=== PATIENT | female | born 1940 | race Caucasian/White ===

== ENCOUNTER 2019-10-06 10:16 | Outpatient (CLI) | payer MEDICARE, SELFPAY ==
--- NOTE | ~2019-10-06 | MM_ITS ---
EXAMINATION: MM screening tresa BI w corky HISTORY: Screening mammogram, family history of breast cancer in her sister. TECHNIQUE: Craniocaudal and mediolateral oblique 3-D tomosynthesis images were obtained and synthetic 2-D images were generated. CAD analysis was submitted and interpreted. COMPARISON: 08/28/2018, 08/21/2017, 08/16/2016 BREAST PARENCHYMAL COMPOSITION: There are scattered areas of fibroglandular density. FINDINGS: RIGHT BREAST: There is possible architectural distortion in the middle/posterior third of the breast best appreciated in line with the nipple axis 7 cm deep to the nipple on the craniocaudal view. LEFT BREAST: A mass is present in the posterior third of the slightly outer breast 9.5 cm from the ni pple. IMPRESSION: 1. Bilateral breast findings as described above. 2. Additional mammographic views and possible breast ultrasound are recommended. BI-RADS Category 0: Incomplete: Needs additional imaging evaluation. Reviewed, dictated and finalized at location A. IMPRESSION: 1. Bilateral breast findings as described above. 2. Additional mammographic views and possible breast ultrasound are recommended . BI-RADS Category 0: Incomplete: Needs additional imaging evaluation.
== END 2019-10-06 10:17 | disposition home or self-care (01) ==
PROVIDERS: PCP Internal Medicine; Visit Provider Internal Medicine
DX: Z12.31 Encounter for screening mammogram for malignant neoplasm of breast (principal); R92.8 Other abnormal and inconclusive findings on diagnostic imaging of breast
CPT/HCPCS: 77063; 77067

== ENCOUNTER 2019-10-27 13:16 | Outpatient (CLI) | payer MEDICARE, SELFPAY ==
--- NOTE | ~2019-10-27 | MMUS_ITS ---
EXAMINATION: MM diagnostic mammo BI, US breast LT limited, US breast RT complete HISTORY: Possible architectural distortion in middle/posterior third of the right breast in line with the nipple axis VII cm deep to the nipple on 10/06/2019 craniocaudal view Left breast mass in posterior third of slightly outer breast 9.5 cm from nipple TECHNIQUE: Additional 3-D tomosynthesis images of both breasts were performed and synthetic 2-D image s were generated. CAD analysis was submitted and interpreted. High resolution complete right and targ eted left 3:00 breast ultrasound was performed. COMPARISON: 10/06/2019 bilateral digital screening mammogram FINDINGS: MAMMOGRAPHIC FINDINGS: Subtle architectural distortion suggested in the posterior central right breast on screening CC view of 10/06/2019 is not definitively confirmed on these supplemental views. As a precaution, complete rig ht breast ultrasound examination was performed. Approximately 4 x 6.5 mm circumscribed opacity is noted posteriorly in the outer mid left breast. Son ographic correlation was performed. ULTRASOUND: Right breast: Prominent subareolar ducts are noted. No suspicious mass or shadowing is evident. Left breast: At 3:00 7 cm from nipple corresponding to the mammographic finding is a parallel circums cribed hypoechoic 2.9 x 5.5 mm lesion with no suspicious shadowing, with through transmission, likely a cyst. No suspicious mass or shadowing is evident. IMPRESSION: 1. No mammographic evidence of malignancy 2. Routine mammographic screening is recommended. BI-RADS Category 2: Benign finding(s). Reviewed, dictated and finalized at location A. IMPRESSION: 1. No mammographic evidence of malignancy 2. Routine mammographic screening is recommended. BI-RADS Category 2: Benign finding(s). IMPRESSION: 1. No mammographic evidence of malignancy 2. Routine mammographic screening is recommended. BI-RADS Category 2: Benign finding(s).
== END 2019-10-27 13:17 | disposition home or self-care (01) ==
LOC: ANHIMG 13:17
PROVIDERS: PCP Internal Medicine; Visit Provider Internal Medicine
DX: R92.8 Other abnormal and inconclusive findings on diagnostic imaging of breast (principal)
CPT/HCPCS: 76641; 76642; 77066

== ENCOUNTER 2019-12-16 00:52 | Outpatient (CLI) | payer MEDICARE, SELFPAY ==
[2019-12-16 20:51] LABS: SARS-CoV-2 RNA PCR Negative
== END 2019-12-16 00:53 | disposition home or self-care (01) ==
LOC: ANHCOVIDDT 00:52
PROVIDERS: PCP Internal Medicine; Visit Provider Internal Medicine Gastroenterology
DX: Z01.812 Encounter for preprocedural laboratory examination (principal); Z20.828 Contact with and (suspected) exposure to other viral communicable diseases
CPT/HCPCS: 87635; C9803; U0003

== ENCOUNTER 2019-12-18 01:20 | Day surgery (SDC) | payer MEDICARE, SELFPAY ==
[2019-12-11 13:00] VITALS: BMI 27.5
--- NOTE | 2019-12-17 12:33 | WPDANESEPPF ---
Anes - Initial Pre Proc Eval Procedure: Operation Date: 12/18/19 08:30 Proposed Procedures p Colonoscopy - Dmitry Hung DO Date/Time: 12/17/19 12:33 Surgeon: Dmitry Hung DO Pre Op Diagnosis: Irritable Bowel Syndrome with Constipation and Romelia Patient Data Age: 79 Gender: F Height: 1.65 m Weight: 75 kg Allergies Allergy/AdvReac Type Severity Reaction Status Date / Time No Known Allergies Allergy Verified 12/18/19 07:39 Home Medications Medication Instructions Recorded Confirmed Type aspirin 81 mg tablet,delayed 81 mg PO DAILY 02/25/19 12/18/19 History release ergocalciferol (vitamin D2) 1,250 50,000 unit PO WEEKLY 02/25/19 12/18/19 History mcg (50,000 unit) capsule loratadine-pseudoephedrine ER 10 1 tablet PO DAILY 02/25/19 12/18/19 History mg-240 mg tablet,extended [id number] multivit with 1 tablet PO DAILY 02/26/19 12/18/19 History ybusppgx-fotg-RQ-lutein 8 mg iron-400 mcg-300 mcg tablet triamcinolone acetonide 0.1 % 1 applic TOPICAL .qother #30 gm 05/30/19 12/18/19 Rx topical ointment gemfibrozil 600 mg tablet 600 mg PO BID #180 tablet 09/07/19 12/18/19 Rx losartan 50 mg tablet 50 mg PO DAILY #90 tablet 09/07/19 12/18/19 Rx lactobacillus combination no.8 1 cell PO DAILY 12/11/19 12/18/19 History [Adult Probiotic] omeprazole 40 mg PO DAILY 12/11/19 12/18/19 History polyethylene glycol 3350 [Miralax] 17 g PO DAILY PRN 12/11/19 12/18/19 History Patient hx anesthesia problems: none Family hx anesthesia problems: none PMFSH Past Medical History Medical History (Updated 12/17/19 @ 12:34 by Michael Luke MD) Essential (primary) hypertension Overweight (BMI 25.0-29.9) Pure hypercholesterolemia Family History Family History Sibling Patient's brother is in good health Family history of malignant neoplasm of breast in first degree relative Acute myocardial infarction Family history of diabetes mellitus in first degree relative Family history of heart disease in male family member before age 55 Father Cerebrovascular accident, Onset Age: 89 Family history of Parkinson's disease Family history of diabetes mellitus in first degree relative Mother Patient's mother is Family history of congestive heart failure Other Diabetes mellitus Family history of allergic disorder Family history of cardiovascular disease Hypertension Social History Social History Smoking status: Never smoker Second hand tobacco smoke exposure: No Alcohol intake: current Drinks per week: 4 Substance use: never Living arrangements: with family Gender identity (if verbalized by the patient): Female Spiritual care concerns: No Anes - Eval Final PreProcedure Day of Procedure 12/17/19 12:33 Patient weight: overweight Heart: regular rate and rhythm Lungs: clear to auscultation and normal air movement Airway: Mallampati scale class II Neurological: alert and oriented Last oral intake: >/= 8 hours ASA classification: II Emergent: no Anesthetic plan: proceed Anesthesia type and monitoring: general GIVS Informed Consent: The patient's anesthetic plan and its attendant risks and benefits were discussed with the patient/family/POA. Questions were solicited and answers provided to the satisfaction of the patient/family/POA.
[2019-12-18 07:42] VITALS: BP 155/89; PULSE 82; RESP 16; TEMP 36.1; O2SAT 99; BMI 27.1
--- NOTE | 2019-12-18 07:51 | PM.IMHP ---
H&P: HPI History of Present Illness Date/Time: 12/18/19 07:51 Chief complaint: Irritable Bowel Syndrome with Constipation and Romelia Narrative: reason for visit is colonoscopy. This very pleasant lady's being evaluated at the request of the primary physician. The patient was examined. Impression: Here very pleasant lady that is here for screening and surveillance colonoscopy. She did have an episode of recent diarrhea. Underlying inflammatory neoplastic disease should be excluded. She does tend to have alternating constipation and diarrhea which is very compatible with IBS. GERD well controlled medications. Per past medical history. Recommendation: Colonoscopy. History: This very pleasant lady's here for screening and surveillance colonoscopy. She has history adenomatous colon polyps. She did have some diarrhea for about 5 days for a couple months ago. He hematochezia, melena colic stools are denied. She tends to have alternating constipation diarrhea. She has a history of reflux disease well controlled on medications. Physical examination: General: very pleasant patient in no acute distress. HEENT: Head was normocephalic sclerae is clear mouth without masses neck was supple. Heart: Rate rhythm regular without S3 or S4. Lungs: CTA. Abdomen: Soft with no guarding or rigidity. Bowel sounds were active. Neurologic: Cranial nerves 2 through 12 intact. No focal defects. No clonus. Musculoskeletal system: Revealed no joint tenderness or swelling no muscle atrophy. Extremities: Reveal no significant edema. Skin: Warm and dry with normal turgor. Mental status: intact. Patient is alert and oriented. Review of Systems Review of Systems: All systems reviewed & are unremarkable except as noted in HPI and below PMFSH Past Medical History Medical History (Updated 12/18/19 @ 07:51 by Dmitry Hung DO) Adenomatous colon polyp Essential (primary) hypertension Overweight (BMI 25.0-29.9) Pure hypercholesterolemia Family History Family History Sibling Patient's brother is in good health Family history of malignant neoplasm of breast in first degree relative Acute myocardial infarction Family history of diabetes mellitus in first degree relative Family history of heart disease in male family member before age 55 Father Cerebrovascular accident, Onset Age: 89 Family history of Parkinson's disease Family history of diabetes mellitus in first degree relative Mother Patient's mother is Family history of congestive heart failure Other Diabetes mellitus Family history of allergic disorder Family history of cardiovascular disease Hypertension Social History Social History Smoking status: Never smoker Second hand tobacco smoke exposure: No Alcohol intake: current Drinks per week: 4 Substance use: never Living arrangements: with family Gender identity (if verbalized by the patient): Female Spiritual care concerns: No Meds Home Medications and Allergies Home Medications Medication Instructions Recorded Confirmed Type aspirin 81 mg tablet,delayed 81 mg PO DAILY 02/25/19 12/18/19 History release ergocalciferol (vitamin D2) 1,250 50,000 unit PO WEEKLY 02/25/19 12/18/19 History mcg (50,000 unit) capsule loratadine-pseudoephedrine ER 10 1 tablet PO DAILY 02/25/19 12/18/19 History mg-240 mg tablet,extended [id number] multivit with 1 tablet PO DAILY 02/26/19 12/18/19 History nadedqqj-rxsm-UQ-lutein 8 mg iron-400 mcg-300 mcg tablet triamcinolone acetonide 0.1 % 1 applic TOPICAL .qother #30 gm 05/30/19 12/18/19 Rx topical ointment gemfibrozil 600 mg tablet 600 mg PO BID #180 tablet 09/07/19 12/18/19 Rx losartan 50 mg tablet 50 mg PO DAILY #90 tablet 09/07/19 12/18/19 Rx lactobacillus combination no.8 1 cell PO IRISH
[2019-12-18] MEDS: LACTATED RINGERS 1,000 ML 150 ML IV CONT (07:56)
[2019-12-18 08:51] VITALS: BP 113/70; PULSE 74; RESP 15; O2SAT 94
[2019-12-18 09:01] VITALS: BP 131/83; PULSE 79; RESP 19; O2SAT 99
[2019-12-18 09:11] VITALS: BP 128/97; PULSE 72; RESP 19; O2SAT 97
== END 2019-12-18 09:41 | disposition home or self-care (01) ==
PROVIDERS: PCP Internal Medicine; Visit Provider Internal Medicine Gastroenterology
PROC: 0DJD8ZZ Inspection of Lower Intestinal Tract, Via Natural or Artificial Opening Endoscopic (ICD-10-PCS; CPT 45378; principal; 2019-12-18 08:30)
DX: R19.7 Diarrhea, unspecified (principal); K59.00 Constipation, unspecified; D12.2 Benign neoplasm of ascending colon; K57.30 Diverticulosis of large intestine without perforation or abscess without bleeding; K64.8 Other hemorrhoids; I10 Essential (primary) hypertension; E78.00 Pure hypercholesterolemia, unspecified; Z79.82 Long term (current) use of aspirin
CPT/HCPCS: 45380; 88305; J2704; J7120

== ENCOUNTER 2020-03-25 20:15 | Observation (INO) | payer MEDICARE, SELFPAY ==
--- NOTE | ~2020-03-25 | XR_ITS ---
EXAMINATION: XR elbow LT min 3V DATE: 03/25/2020 23:59 INDICATION: Left elbow pain TECHNIQUE: Anteroposterior, two oblique and lateral views of the left elbow were obtained. COMPARISON: None. FINDINGS: Minimally impacted intra-articular fracture of the left radial head which involves approximately one quarter of the total surface of the articular surface and with up to 1 mm step-off at the articular c ortex. Alignment remains otherwise normal. No other fractures identified. Mild osteoarthritis at the ulnotrochlear and proximal radioulnar articulations. Small left elbow joint effusion is present. Soft tissues are otherwise unremarkable. IMPRESSION: 1. Minimally depressed intra-articular fracture of the left radial head. Reviewed, dictated and finalized at location A. UMER BANKER
--- NOTE | ~2020-03-25 | XR_ITS ---
EXAMINATION: XR pelvis 1-2V DATE: 03/25/2020 23:58 INDICATION: Left hip pain post fall TECHNIQUE: An anteroposterior view of the pelvis was obtained. COMPARISON: 01/19/2016 FINDINGS: Alignment is normal. No fracture. Mild bilateral hip osteoarthritis with minimal chondrocalcinosis al francisco the left femoral head. Small amount of heterotopic ossification at the bilateral greater trochant ers. Severe lumbar spondylosis. Coarse calcification project over the central pelvis consistent with degenerated uterine fibroids. IMPRESSION: 1. Mild bilateral hip osteoarthritis. No acute osseous abnormality. 2. Severe lower lumbar spondylosis. 3. Ossified degenerated uterine fibroids. Reviewed, dictated and finalized at location A. ADMINISTRATOR
--- NOTE | ~2020-03-25 | XR_ITS ---
EXAMINATION: XR femur LT min 2V DATE: 03/25/2020 23:09 INDICATION: Posterior proximal left femoral pain post fall TECHNIQUE: Overlapping proximal and distal, AP and lateral views of the left femur were obtained. COMPARISON: CT abdomen and pelvis dated 05/27/2018 FINDINGS: Alignment is normal. No fracture. No knee joint effusion. Joint spaces appear relatively preserved. Chondrocalcinosis at the left hip and knee. Mild left hip osteoarthritis. Left knee joint space appe ars relatively preserved on nonweightbearing imaging. Small amount of heterotopic ossicles along the left greater trochanter. Coarse calcifications in the central pelvis corresponding to a degenerated u terine fibroids on prior CT. Soft tissues are unremarkable. IMPRESSION: 1. No acute osseous abnormality. 2. Mild chondrocalcinosis at the left hip and knee with mild left hip osteoarthritis. 3. Calcified degenerated uterine fibroids in the pelvis. Reviewed, dictated and finalized at location A. ING ROOM ASSOCIATE IMPRESSION: 1. No acute osseous abnormality. 2. Mild chondrocalcinosis at the left hip and knee with mild left hip osteoarth ritis. 3. Calcified degenerated uterine fibroids in the pelvis.
--- NOTE | ~2020-03-25 | XR_ITS ---
EXAMINATION: XR ribs LT 2V DATE: 03/25/2020 23:10 INDICATION: Generalized left rib pain post fall TECHNIQUE: 3 views of the left ribs were obtained. COMPARISON: Chest radiograph dated 01/26/2010 FINDINGS: Acute non to minimally displaced fracture of the lateral left third-eighth ribs. Mild linear atelecta sis at the lateral left lower lung zone likely related to splinting. No pneumothorax or left pleural effusion. 30 mediastinal silhouette is normal. Cholecystectomy clips in the right upper quadrant. IMPRESSION: 1. Centimeter minimally displaced left third-eighth rib fractures. 2. Mild atelectasis in the left lower lung zone likely related to splinting with no pleural effusion or pneumothorax. Reviewed, dictated and finalized at location A. ING FLOOR OPERATOR IMPRESSION: 1. Centimeter minimally displaced left third-eighth rib fractures. 2. Mild atelectasis in the left lower lung zone likely related to splinting wit h no pleural effusion or pneumothorax.
--- NOTE | ~2020-03-25 | XR_ITS ---
EXAMINATION: XR humerus LT DATE: 03/25/2020 23:09 INDICATION: Distal left humeral pain post fall TECHNIQUE: AP and lateral views of the left humerus were obtained. COMPARISON: None FINDINGS: Alignment is normal. There are few left rib fractures. See separate left rib radiograph report for fu rther detail. No evident fracture at the left shoulder or humerus. There is an irregular contour to t he rim of the head of the proximal left radius which is equivocal for fracture versus degenerative os teophyte. No evident elbow joint effusion. Additional osteoarthritis with nonuniform joint space narr owing at the ulnotrochlear articulation and at the glenohumeral joint with marginal osteophyte along the posterior glenoid. Moderate left acromioclavicular osteoarthritis. Amorphous calcification overly ing the humeral head and location most consistent with rotator cuff calcific tendinitis. No evident p neumothorax in the left hemithorax. IMPRESSION: 1. Irregular cortical contour along the articular rim of the left radial head. Clinical for degenerat marialuisa osteophyte versus minimally displaced fracture. Recommend dedicated left elbow radiographs for fu rther evaluation. 2. Multiple left-sided rib fractures. See separate left rib radiographs for further detail. 3. 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 4. Left rotator cuff calcific tendinitis. Reviewed, dictated and finalized at location A. EDICAL EQUIPMENT TECH IMPRESSION: 1. Irregular cortical contour along the articular rim of the left radial head. Clinical for degenerative osteophyte versus minimally displaced fracture. Recom mend dedicated left elbow radiographs for further evaluation. 2. Multiple left-sided rib fractures. See separate left rib radiographs for fur ther detail. 3. 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 4. Left rotator cuff calcific tendinitis.
[2020-03-25 20:31] VITALS: BP 141/67; PULSE 87; RESP 12; TEMP 36.3; O2SAT 96
[2020-03-25 22:40] VITALS: BP 123/67; PULSE 94; TEMP 37.2; O2SAT 99
--- NOTE | 2020-03-25 23:29 | ED.FALL ---
HPI - Fall General Chief Complaint: Fall Stated Complaint: Fall - LEFT hip, LEFT arm pain Time Seen by Provider: 03/25/20 23:29 History of Present Illness HPI Narrative: 79 yo female brought in by EMS from home after a fall. She was walkig at home when she tripped over the edge of the carpet and fell onto her left side. She reports moderate to severe pain in the left side of the chest, left elbow and left hip. She did not hit her head. No dizziness, weakness, LOC. Related Data Home Medications Medication Instructions Recorded Confirmed aspirin 81 mg tablet,delayed 81 mg PO DAILY 02/25/19 03/22/20 release ergocalciferol (vitamin D2) 1,250 50,000 unit PO WEEKLY 02/25/19 03/22/20 mcg (50,000 unit) capsule loratadine-pseudoephedrine ER 10 1 tablet PO DAILY 02/25/19 03/22/20 mg-240 mg tablet,extended [id number] multivit with 1 tablet PO DAILY 02/26/19 03/22/20 xshboqem-lxba-FA-lutein 8 mg iron-400 mcg-300 mcg tablet lactobacillus combination no.8 1 cell PO DAILY 12/11/19 03/22/20 [Adult Probiotic] omeprazole 40 mg PO DAILY 12/11/19 03/22/20 polyethylene glycol 3350 [Miralax] 17 g PO DAILY PRN 12/11/19 03/22/20 Allergies Allergy/AdvReac Type Severity Reaction Status Date / Time No Known Allergies Allergy Verified 03/25/20 23:51 Review of Systems Review of Systems: All systems reviewed & are unremarkable except as noted in HPI and below Constitutional: Constitutional: Denies fever(s) and Denies weakness Eyes: Eyes: Reports no additional eye complaints ENT: Denies dizziness Cardiovascular: Cardiovascular: Denies chest pain Respiratory: Respiratory: Denies dyspnea Gastrointestinal: Gastrointestinal: Reports no additional gastrointestinal complaints Genitourinary: Genitourinary: Reports no additional female genitourinary complaints Musculoskeletal: Musculoskeletal: Denies back pain Neurologic: Denies numbness and Denies weakness PMFSH Past Medical History Medical History Adenomatous colon polyp Essential (primary) hypertension Overweight (BMI 25.0-29.9) Pure hypercholesterolemia Family History Family History Sibling Patient's brother is in good health Family history of malignant neoplasm of breast in first degree relative Acute myocardial infarction Family history of diabetes mellitus in first degree relative Family history of heart disease in male family member before age 55 Father Cerebrovascular accident, Onset Age: 89 Family history of Parkinson's disease Family history of diabetes mellitus in first degree relative Mother Patient's mother is Family history of congestive heart failure Other Diabetes mellitus Family history of allergic disorder Family history of cardiovascular disease Hypertension Social History Social History Smoking status: Never smoker Second hand tobacco smoke exposure: No Alcohol intake: current Drinks per week: 4 Substance use: never Gender identity (if verbalized by the patient): Female Spiritual care concerns: No Exam Const: General: no acute distress and alert Orientation/consciousness: patient oriented x3 HENMT: Head: normal to inspection Neck: Neck: normal visual inspection Chest: Chest palpation & inspection: tenderness rib (left lateral) Resp: Effort & Inspection: normal respiratory effort Auscultation: clear to auscultation bilaterally Cardio: Rate: regular rate Rhythm: regular rhythm GI: Inspection: non-distended Back/Spine/Pelvis: Other: left scapula tenderness Skin: Wounds: no wounds Other: bruising to left ring finger Neuro: General: patient oriented x3, moves all extremities, no focal motor deficits and CN's II-XI intact bilaterally Speech: normal speech Extrem: Other: tenderness over posterior lateral pelvis
[2020-03-25] MEDS: HYDROcodone/acetaminophen (*CRX) 5-325 MG TABLET 1 TAB PO (23:45)
--- NOTE | 2020-03-25 23:49 | PC.NURSE ---
Pt to XRAY via stretcher.
[2020-03-26] VITALS (7 sets, daily range): BP systolic 130–157; BP diastolic 64–93; PULSE 73–86; RESP 16–18; TEMP 36.4–36.6; O2SAT 95–99; BMI 29.7
[2020-03-26] MEDS: MORPHINE SULFATE (*CRX) 2 MG/ML INJ IV PUSH (01:23)
[2020-03-26 01:37] LABS: Basophils Percent Auto 0.3 % (0.2-1.2); Eosinophils Absolute Auto 0.1 K/mm3 (0-0.3); Eosinophils Percent Auto 0.9 % (0-4.4); Hemoglobin 12.6 g/dL (12.0-15.0); Immature Granulocyte Absolute 0.08 K/mm3 (0.00-0.031); Immature Granulocyte Percent A 0.6 % (0-0.5); Lymphocytes Absolute Auto 1.95 K/mm3 (0.9-3.2); Lymphocytes Percent Auto 13.8 % (18.3-44.2); Mean Corpuscular HGB Conc 33.2 g/dl (32-36); Mean Corpuscular Hemoglobin 29.8 pg (26-34); Mean Corpuscular Volume 89.8 fl (80-100); Mean Platelet Volume 10.6 fl (7.4-10.4); Monocytes Absolute Auto 0.9 K/mm3 (0.1-0.6); Monocytes Percent Auto 6.4 % (2.6-8.5); Platelet Count Result 351 k/mm3 (150-375); Red Blood Count 4.23 M/mm3 (4.2-5.4); Red Cell Distribution Width 13.2 % (11.5-14.5); White Blood Count 14.1 K/mm3 (4.5-10.0)
[2020-03-26 01:49] LABS: Anion Gap 7 mmol/L (8-16); Blood Urea Nitrogen 20 mg/dL (7-17); Calcium 9.6 mg/dL (8.4-10.2); Carbon Dioxide 29 mmol/L (22-30); Chloride 107 mmol/L (98-107); Estimated CRCL calculation 60 ml/min; Estimated Glomerular Filt Rate > 60; Glucose 124 mg/dL (65-105); Potassium 4.7 mmol/L (3.4-5.0); Sodium 143 mmol/L (137-145)
--- NOTE | 2020-03-26 02:15 | PC.NURSE ---
This patient, Aimee Smith, was admitted to [facility] Surg Room 325-01. Patient/family oriented to hospital policies and general routines including ID bracelet, bed and alarms, visiting hours, pain management, procedures, bathroom and other care routines, personal items, smoking policy, room service/diet, and visiting hours. Information on how to activate the Rapid Response Team has been discussed. Patient/Family are encouraged to report perceived risks to care and to ask questions if they do not understand what they are told or what they should do.
--- NOTE | 2020-03-26 02:32 | PM.IMHP ---
H&P: HPI History of Present Illness Date/Time: 03/26/20 02:32 Chief Complaint: Acute fall and left rib pain Narrative: This is a pleasant 79 year old female with known chronic HTN and hyperlipidemia who presented to the [facility] after suffering a fall at home. The patient was walking in her living room when she tripped over the edge of an area rug and landed on her left side. She initially reported pain of the left side of her chest, left elbow, and left hip. She denies passing out, head trauma, or seizure like activity. Rib xray series demonstrated centimeter minimally displaced left third-eighth rib fractures. Humeral xray showed an irregular cortical contour along the articular rim of the left radial head. ER provider has consulted Orthopedic surgeon who has asked that the patient be placed in a sling and they will evaluate her in the morning. Currently the patient's pain is controlled. She has no other complaints at this time. Review of Systems Review of Systems: All systems reviewed & are unremarkable except as noted in HPI and below PMFSH Past Medical History Medical History Adenomatous colon polyp Essential (primary) hypertension Overweight (BMI 25.0-29.9) Pure hypercholesterolemia Family History Family History Sibling Patient's brother is in good health Family history of malignant neoplasm of breast in first degree relative Acute myocardial infarction Family history of diabetes mellitus in first degree relative Family history of heart disease in male family member before age 55 Father Cerebrovascular accident, Onset Age: 89 Family history of Parkinson's disease Family history of diabetes mellitus in first degree relative Mother Patient's mother is Family history of congestive heart failure Other Diabetes mellitus Family history of allergic disorder Family history of cardiovascular disease Hypertension Social History Social History Smoking status: Never smoker Second hand tobacco smoke exposure: No Alcohol intake: current Drinks per week: 4 Substance use: never Gender identity (if verbalized by the patient): Female Spiritual care concerns: No Comments Past surgical history is reviewed and noncontributory. Meds Home Medications and Allergies Home Medications Medication Instructions Recorded Confirmed Type aspirin 81 mg tablet,delayed 81 mg PO DAILY 02/25/19 03/26/20 History release ergocalciferol (vitamin D2) 1,250 50,000 unit PO WEEKLY 02/25/19 03/26/20 History mcg (50,000 unit) capsule loratadine-pseudoephedrine ER 10 1 tablet PO DAILY 02/25/19 03/26/20 History mg-240 mg tablet,extended [id number] multivit with 1 tablet PO DAILY 02/26/19 03/26/20 History jwlzbfeh-ybey-GJ-lutein 8 mg iron-400 mcg-300 mcg tablet lactobacillus combination no.8 1 cell PO DAILY 12/11/19 03/26/20 History [Adult Probiotic] omeprazole 40 mg PO DAILY 12/11/19 03/26/20 History polyethylene glycol 3350 [Miralax] 17 g PO DAILY PRN 12/11/19 03/26/20 History gemfibrozil 600 mg tablet 600 mg PO BID #180 tablet 03/09/20 03/26/20 Rx losartan 100 mg tablet 100 mg PO DAILY #90 tablet 03/22/20 03/26/20 Rx Allergies Allergy/AdvReac Type Severity Reaction Status Date / Time No Known Allergies Allergy Verified 03/25/20 23:51 Vital Signs Vital Signs - 24 hr 03/25/20 20:31 03/25/20 22:40 03/26/20 00:11 Temperature 36.3 C L 37.2 C Pulse Rate 87 94 84 Respiratory Rate 12 17 Blood Pressure 141/67 H 123/67 148/88 H Pulse Oximetry 96 99 98 03/26/20 01:21 03/26/20 02:17 Temperature Pulse Rate 86 86 Respiratory Rate 18 18 Blood Pressure 157/93 H 145/89 H Pulse Oximetry 97 97 Exam Const: General: cooperative, no acute distress, alert and awake Nutritional Appearance: well n
[2020-03-26] MEDS: MORPHINE SULFATE (*CRX) 4 MG/ML INJ IV PUSH ×2 (03:40→09:15)
[2020-03-26 03:44] LABS: Prothrombin Time 13.8 Seconds (11.1-14.7)
[2020-03-26 03:45] LABS: Partial Thromboplastin Time 28.1 SECONDS (22.3-36.8)
--- NOTE | 2020-03-26 12:25 | PM.CNOR ---
Assessment and Plan Assessment and plan (1) Fracture of head of left radius: Qualifiers: Encounter type: initial encounter Fracture alignment: displaced Fracture type: closed Qualified Code(s): S52.122A - Displaced fracture of head of left radius, initial encounter for closed fracture Code(s): S52.122A - Displaced fracture of head of left radius, initial encounter for closed fracture Status: Acute Assessment and Plan: 79-year-old right-handed female with in essentially Rell type 1 left radial head fracture. I went over the injury with her and with her . She has a sling in can work on some very gentle range of motion but not do any lifting. I would like to see her in the office in two weeks for x-ray of the left elbow. Tylenol should suffice for discomfort. Thank you for the consultation. History of Present Illness HPI Consult date: 03/26/20 Consult reason: fracture (Left radial head) Chief complaint: multiple rub fractures, left radial head fracture Narrative: 71-year-old right-handed female who fell yesterday suffering multiple left-sided rib fractures and a left distal radius fracture. She has got pain in her left ribs as well as along the medial lateral aspects of her left elbow. No numbness or weakness in her left upper extremity. No problems like this in the past. When at home, she usually gets around just fine and does most of the house work according to the patient and her who is here with her today. Review of Systems Constitutional: Constitutional: Reports no additional constitutional complaints Eyes: Eyes: Reports no additional eye complaints Cardiovascular: Cardiovascular: Reports chest pain at rest (Sore over the left ribs) Respiratory: Respiratory: Reports no additional respiratory complaints and Denies dyspnea Gastrointestinal: Gastrointestinal: Reports no additional gastrointestinal complaints Musculoskeletal: Musculoskeletal: Reports as per HPI Integumentary/Breasts: Skin/Breast: Reports system reviewed and no additional complaints, except as docu Neurologic: Reports as per HPI [facility] Past Medical History Medical History Adenomatous colon polyp Essential (primary) hypertension Overweight (BMI 25.0-29.9) Pure hypercholesterolemia Family History Family History Sibling Patient's brother is in good health Family history of malignant neoplasm of breast in first degree relative Acute myocardial infarction Family history of diabetes mellitus in first degree relative Family history of heart disease in male family member before age 55 Father Cerebrovascular accident, Onset Age: 89 Family history of Parkinson's disease Family history of diabetes mellitus in first degree relative Mother Patient's mother is Family history of congestive heart failure Other Diabetes mellitus Family history of allergic disorder Family history of cardiovascular disease Hypertension Social History Social History Smoking status: Never smoker Second hand tobacco smoke exposure: No Alcohol intake: current Drinks per week: 4 Substance use: never Gender identity (if verbalized by the patient): Female Spiritual care concerns: No Meds Home Medications and Allergies Home Medications Medication Instructions Recorded Confirmed Type aspirin 81 mg tablet,delayed 81 mg PO DAILY 02/25/19 03/26/20 History release ergocalciferol (vitamin D2) 1,250 50,000 unit PO WEEKLY 02/25/19 03/26/20 History mcg (50,000 unit) capsule loratadine-pseudoephedrine ER 10 1 tablet PO DAILY 02/25/19 03/26/20 History mg-240 mg tablet,extended evuzjrd89ov multivit with 1 tablet PO DAILY 02/26/19 03/26/20 History zxmymmcy-bjhg-KU-lutein 8 mg iron-400 mcg-300 mcg tablet lactobacillus combin
--- NOTE | 2020-03-26 12:58 | PM.DS ---
DS: Admitting Diagnosis Admitting Diagnosis Admitting Diagnosis: Left radial head fracture, multiple left sided rib fractures s/p mechanical fall DS: Discharge Diagnosis Discharge Diagnosis (1) Multiple fractures of ribs: Qualifiers: Encounter type: initial encounter Fracture type: closed Laterality: left Qualified Code(s): S22.42XA - Multiple fractures of ribs, left side, initial encounter for closed fracture Code(s): S22.49XA - Multiple fractures of ribs, unspecified side, initial encounter for closed fracture Status: Acute Assessment and Plan: s/p mechanical fall at home. Pain is reasonable right now, but has not tried PO med yet today. She thinks chest pain and left elbow pain Continue pain control as needed; will do short course of antibiotics Continue Incentive Spirometry. (2) Fracture of head of left radius: Qualifiers: Encounter type: initial encounter Fracture alignment: displaced Fracture type: closed Qualified Code(s): S52.122A - Displaced fracture of head of left radius, initial encounter for closed fracture Code(s): S52.122A - Displaced fracture of head of left radius, initial encounter for closed fracture Status: Acute Assessment and Plan: Dr. Aparicio consulted by ER and has evaluated patient. Recommended sling for left arm with minimal range of motion and no lifting with that arm; okay for discharge from Ortho standpoint with f/u with them in 2 weeks for repeat imaging Pain control as needed as noted above Continue Ortho recommendations. PT/OT evaluations Patient wishes to return home. Hopefully discharge home today (3) Essential (primary) hypertension: Code(s): I10 - Essential (primary) hypertension Status: Acute Assessment and Plan: BP well controlled. most recent BP 130s sys Continue losartan PO. (4) Pure hypercholesterolemia: Code(s): E78.00 - Pure hypercholesterolemia, unspecified Status: Acute Assessment and Plan: Continue statin therapy. DS: Summary Hospital Course Reason for hospitalization: s/p mechanical fall, multiple left rib fractures and left radial fracture Hospital Course: Date of arrival: 03/25/20 Date of discharge: 03/26/20 Patient is a 79 year old female with known chronic HTN and hyperlipidemia who presented to the hospital on 03/25 after suffering a fall at home. The patient was walking in her living room when she tripped over the edge of an area rug and landed on her left side. While in the ED, CXR showed multiple left rib fractures and left elbow xray showed minimally depressed intra-articular fracture of the left radial head. Other images were unremarkable for acute findings. Dr. Aparicio (Orthopedic Surgery) was consulted for further input and recommended placing left arm in sling. Patient admitted under this setting. Please see H&P for further details. Patient was admitted to the hospitalist service for further management/treatment. Patient was evaluated by Dr. Aparicio and recommended continuing with sling with minimal arm movement without any lifting in that arm at all. She was to follow up with him in 2 weeks. Her pain was not controlled with Tylenol, thus a short course of Rives was provided for breakthrough pain by the Hospitalist service. Patient was evaluated by PT/OT and plan was for her to return back home with . Patient and family agreeable and comfortable with plan for discharge. Patient hemodynamically stable and in improved condition for discharge on 03/26 Status at Discharge Overall status at discharge: patient is progressing back to baseline Time Spent with Patient Time attestation: Total time spent providing and/or coordinating discharge services: Time spent: Greater than 30 minutes
[2020-03-26] MEDS: ASPIRIN 81 MG ENTERIC TABLET PO (14:20)
[2020-03-26] MEDS: gemfibroziL 600 MG TABLET PO (14:20)
[2020-03-26] MEDS: LOSARTAN POTASSIUM 100 MG TABLET PO (14:21)
[2020-03-26] MEDS: PANTOPRAZOLE 40 MG TABLET PO (14:21)
[2020-03-26] MEDS: HYDROcodone/acetaminophen (*CRX) 5-325 MG TABLET 1 TAB PO (14:24)
== END 2020-03-26 17:00 | disposition home or self-care (01) ==
LOC: ANHED 23:29 → ANH3MEDSUR 03-26 02:00
PROVIDERS: Admitting Provider Family Medicine; Emergency Provider Emergency Medicine; PCP Internal Medicine; Visit Provider Internal Medicine
DX: S22.42XA Multiple fractures of ribs, left side, initial encounter for closed fracture (principal); S52.122A Displaced fracture of head of left radius, initial encounter for closed fracture; I10 Essential (primary) hypertension; E78.00 Pure hypercholesterolemia, unspecified; M25.552 Pain in left hip; M25.522 Pain in left elbow; W01.0XXA Fall on same level from slipping, tripping and stumbling without subsequent striking against object, initial encounter; R07.81 Pleurodynia; E66.3 Overweight; Z68.29 Body mass index [BMI] 29.0-29.9, adult; M47.816 Spondylosis without myelopathy or radiculopathy, lumbar region; M89.49 Other hypertrophic osteoarthropathy, multiple sites; M75.32 Calcific tendinitis of left shoulder; D25.9 Leiomyoma of uterus, unspecified; M11.252 Other chondrocalcinosis, left hip; M11.262 Other chondrocalcinosis, left knee; R91.8 Other nonspecific abnormal finding of lung field; E78.5 Hyperlipidemia, unspecified; Z79.82 Long term (current) use of aspirin; Z79.899 Other long term (current) drug therapy
CPT/HCPCS: 36415; 71100; 72170; 73060; 73080; 73552; 80048; 85025; 85610; 85730; 96374; 96376; 97161; 97165; 99285; A4565; A9270; G0378; J2270

== ENCOUNTER 2020-09-14 10:29 | Outpatient (CLI) | payer MEDICARE, SELFPAY ==
[2020-09-14 10:53] LABS: Add Urine Microscopic? NO; Appearance Urine Clear (Clear); Bilirubin Urine Negative (Negative); Blood Urine Negative (Negative); Color Urine Straw (Yellow); Glucose Urine UA Negative (Negative); Ketones Urine Negative (Negative); Leukocyte Esterase Ur Negative LEU/UL (Negative); Nitrate Urine Negative (Negative); Protein Urine Negative (Negative); Urobilinogen Urine Negative mg/dL (<2.0)
[2020-09-14 11:29] LABS: Specific Grav Ur 1.003 (1.001-1.035)
== END 2020-09-14 10:30 | disposition home or self-care (01) ==
PROVIDERS: PCP Internal Medicine; Visit Provider Internal Medicine
DX: R30.0 Dysuria (principal)
CPT/HCPCS: 81003

== ENCOUNTER 2020-11-16 02:33 | Day surgery (SDC) | payer MEDICARE, SELFPAY ==
[2020-11-09 08:58] VITALS: BMI 28.3
[2020-11-16] MEDS: LACTATED RINGERS 1,000 ML 150 ML IV CONT (11:20)
[2020-11-16 11:23] VITALS: BP 180/83; PULSE 73; RESP 19; TEMP 36.1; O2SAT 99
--- NOTE | 2020-11-16 11:48 | WPDGICN ---
Assessment and Plan Assessment and plan (1) GERD (gastroesophageal reflux disease): Code(s): K21.9 - Gastro-esophageal reflux disease without esophagitis Status: Inactive Assessment and Plan: Patient has regurgitation epigastric pain and substernal heartburn all consistent with acid reflux disease. She only recently restarted previously prescribed PPI therapy. Plan is for anti-reflux measures. Elevate head of bed at night. No late snacks. Keith foods. Restarting omeprazole 20mg p.o. daily is suggested. An EGD will be performed because the severity of the symptoms currently. (2) History of colon polyps: Code(s): Z86.010 - Personal history of colonic polyps Status: Acute Assessment and Plan: Patient has a history of adenomatous colon polyps removed from the colon. Most recent colonoscopy December 2019. Suggest follow-up colonoscopy in 5 years. GI Consult Note Consult date/time: 11/16/20 11:48 HPI: Aimee Smith is a 80 year old female Presents for EGD. Patient has a longstanding history of acid reflux. Heartburn. Epigastric pain now notes epigastric regurgitation. Previously prescribed omeprazole she discontinued this because she does not like taking medications. As symptoms have recurred and worsened over several months time and some of these symptoms for several years. Patient recently restarted omeprazole over the last 2 weeks. She states this is not yet alleviated her symptoms. She denies any bleeding or weight loss. Past history is significant for an endoscopy more than 10 years ago. She did have colon polyps removed in December [address] Hung. patient presents today for EGD. Follow-up colonoscopy suggested in 5 years. Review of Systems Review of Systems: All systems reviewed & are unremarkable except as noted in HPI and below PMFSH Past Medical History Medical History (Updated 11/16/20 @ 11:50 by Dmitry Courtney MD) Acid reflux Adenomatous colon polyp Allergies Essential (primary) hypertension GERD (gastroesophageal reflux disease) Hypertension Overweight (BMI 25.0-29.9) Pure hypercholesterolemia Surgical History Surgical History H/O tubal ligation Hx of cataract surgery S/P appendectomy S/P cholecystectomy S/P foot surgery S/P tonsillectomy Family History Family History Sibling Patient's brother is in good health Family history of malignant neoplasm of breast in first degree relative Acute myocardial infarction Family history of diabetes mellitus in first degree relative Family history of heart disease in male family member before age 55 Father Cerebrovascular accident, Onset Age: 89 Family history of Parkinson's disease Family history of diabetes mellitus in first degree relative Mother Patient's mother is Family history of congestive heart failure Other Diabetes mellitus Family history of allergic disorder Family history of cardiovascular disease Hypertension Social History Social History Smoking status: Never smoker Second hand tobacco smoke exposure: No Alcohol intake: current Drinks per week: 4 Substance use: never Living arrangements: with family Gender identity (if verbalized by the patient): Female Spiritual care concerns: No Meds Home Medications and Allergies Home Medications Medication Instructions Recorded Confirmed Type aspirin 81 mg tablet,delayed 81 mg PO DAILY 02/25/19 11/16/20 History release ergocalciferol (vitamin D2) 1,250 50,000 unit PO WEEKLY 02/25/19 11/16/20 History mcg (50,000 unit) capsule multivit with 1 tablet PO DAILY 02/26/19 11/16/20 History fpjntxvp-shtj-MJ-lutein 8 mg iron-400 mcg-300 mcg tablet Adult Probiotic 1 cell PO DAILY 12/11/19 11/16/20 History losartan 100 mg tablet 1
--- NOTE | 2020-11-16 12:13 | WPDANESEPPF ---
Anes - Initial Pre Proc Eval Procedure: Operation Date: 11/16/20 12:30 Proposed Procedures p Esophagogastroduodenoscopy - Dmitry Courtney MD Date/Time: 11/16/20 12:13 Surgeon: Dmitry Courtney MD Pre Op Diagnosis: GERD Patient Data Age: 80 Gender: F Height: 1.65 m Weight: 76.9 kg Last Vital Signs Temp 97 F L 11/16/20 11:23 Pulse 73 11/16/20 11:23 Resp 19 11/16/20 11:23 BP 180/83 H 11/16/20 11:23 Pulse Ox 99 11/16/20 11:23 Allergies Allergy/AdvReac Type Severity Reaction Status Date / Time No Known Allergies Allergy Verified 11/16/20 11:22 Home Medications Medication Instructions Recorded Confirmed Type aspirin 81 mg tablet,delayed 81 mg PO DAILY 02/25/19 11/16/20 History release ergocalciferol (vitamin D2) 1,250 50,000 unit PO WEEKLY 02/25/19 11/16/20 History mcg (50,000 unit) capsule multivit with 1 tablet PO DAILY 02/26/19 11/16/20 History ofxxvgou-yvtz-GX-lutein 8 mg iron-400 mcg-300 mcg tablet Adult Probiotic 1 cell PO DAILY 12/11/19 11/16/20 History losartan 100 mg tablet 100 mg PO DAILY #90 tablet 08/12/20 11/16/20 Rx gemfibrozil 600 mg tablet 600 mg PO BID #180 tablet 10/25/20 11/16/20 Rx omeprazole 40 mg capsule,delayed 40 mg PO DAILY #90 cap 10/29/20 11/16/20 Rx release psyllium husk [Metamucil] 1 tbsp PO DAILY 11/09/20 11/16/20 History Patient hx anesthesia problems: none Family hx anesthesia problems: none Results Review: All pre-operative results and documents have been reviewed as part of the pre-operative evaluation. [facility] Past Medical History Medical History (Updated 11/16/20 @ 11:50 by Dmitry Courtney MD) Acid reflux Adenomatous colon polyp Allergies Essential (primary) hypertension GERD (gastroesophageal reflux disease) Hypertension Overweight (BMI 25.0-29.9) Pure hypercholesterolemia Surgical History Surgical History H/O tubal ligation Hx of cataract surgery S/P appendectomy S/P cholecystectomy S/P foot surgery S/P tonsillectomy Family History Family History Sibling Patient's brother is in good health Family history of malignant neoplasm of breast in first degree relative Acute myocardial infarction Family history of diabetes mellitus in first degree relative Family history of heart disease in male family member before age 55 Father Cerebrovascular accident, Onset Age: 89 Family history of Parkinson's disease Family history of diabetes mellitus in first degree relative Mother Patient's mother is Family history of congestive heart failure Other Diabetes mellitus Family history of allergic disorder Family history of cardiovascular disease Hypertension Social History Social History Smoking status: Never smoker Second hand tobacco smoke exposure: No Alcohol intake: current Drinks per week: 4 Substance use: never Living arrangements: with family Gender identity (if verbalized by the patient): Female Spiritual care concerns: No Anes - Eval Final PreProcedure Day of Procedure 11/16/20 12:13 Patient weight: overweight Heart: regular rate and rhythm Lungs: clear to auscultation Airway: Mallampati scale class II Neurological: alert and oriented Last oral intake: >/= 8 hours ASA classification: II Emergent: no Anesthetic plan: proceed Anesthesia type and monitoring: general GIVS and standard monitoring Results Review: All pre-operative results and documents have been reviewed as part of the pre-operative evaluation. Informed Consent: The patient's anesthetic plan and its attendant risks and benefits were discussed with the patient/family/POA. Questions were solicited and answers provided to the satisfaction of the patient/family/POA.
[2020-11-16 12:24] VITALS: BP 173/87; PULSE 73; RESP 30; O2SAT 94
[2020-11-16 12:34] VITALS: BP 143/87; PULSE 71; RESP 16; O2SAT 99
[2020-11-16 12:44] VITALS: BP 151/97; PULSE 70; RESP 19; O2SAT 100
== END 2020-11-16 13:00 | disposition home or self-care (01) ==
PROVIDERS: PCP Internal Medicine; Visit Provider Internal Medicine Gastroenterology
PROC: 0DJ08ZZ Inspection of Upper Intestinal Tract, Via Natural or Artificial Opening Endoscopic (ICD-10-PCS; CPT 43235; principal; 2020-11-16 12:30)
DX: K21.9 Gastro-esophageal reflux disease without esophagitis (principal); I10 Essential (primary) hypertension; E78.00 Pure hypercholesterolemia, unspecified; Z79.82 Long term (current) use of aspirin
CPT/HCPCS: 43239; 87081; J2704; J7120

== ENCOUNTER 2021-01-15 09:26 | Outpatient (CLI) | payer MEDICARE, SELFPAY ==
--- NOTE | ~2021-01-15 | DEXA_ITS ---
Bone Density Report Name: Aimee Smith Age: 80 Sex: Female Ethnicity: White Date of : 1940 Indication: postmenopausal; height loss; prior fracture; Referring Provider: Prieto Neal Study: Bone densitometry was performed. Exam Date: January 15, 2021 Accession number: [id number] Bone Density: Region BMD T-score Z-score Classification AP Spine (L1-L4) 1.306 2.4 5.0 Normal Femoral Neck (Left) 0.681 -1.5 0.8 Osteopenia Total Hip (Left) 0.805 -1.1 0.9 Osteopenia Total Hip Bilateral Avg 0.813 -1.1 0.9 Osteopenia Femoral Neck (Right) 0.683 -1.5 0.8 Osteopenia Total Hip (Right) 0.820 -1.0 1.0 Normal World Health Organization criteria for BMD impression classify patients as: Normal (T-score at or above -1.0), Osteopenia (T-score between -1.0 and -2.5), or Osteoporosis (T-score at or below -2.5). 10-year Fracture Risk(1): Major Osteoporotic Fracture 19% Hip Fracture 4.1% Reported Risk Factors: [place] (), Neck BMD=0.683, BMI=27.8, previous fracture (1) FRAX(R) Version 3.08. Fracture probability calculated for an untreated patient. Fracture probability may be lower if the patient has received treatment. Previous Exams: Region Exam Age BMD T-score BMD Change BMD Change Date g/cm2 vs Baseline vs Previous AP Spine(L1-L4) 01/15/2021 80 1.306 2.4 0.034(2.7%)# -0.040(-3.0%)# 08/09/2015 74 1.346 2.7 0.075(5.9%)# 0.030(2.3%)* 07/23/2013 72 1.316 2.4 0.044(3.5%)# 0.009(0.7%)# 06/23/2010 69 1.307 2.4 0.036(2.8%)* -0.020(-1.5%) 05/14/2007 66 1.327 2.5 0.056(4.4%)* 0.056(4.4%)* 10/10/2004 64 1.272 2.0 Total Hip(Left) 01/15/2021 80 0.805 -1.1 -0.067(-7.7%)# -0.098(-10.9%) 08/09/2015 74 0.903 -0.3 0.031(3.6%)# 0.120(15.3%)* 07/23/2013 72 0.783 -1.3 -0.089(-10.2%) -0.051(-6.1%)# 06/23/2010 69 0.834 -0.9 -0.038(-4.4%)* 0.010(1.2%) 05/14/2007 66 0.824 -1.0 -0.048(-5.5%)* -0.048(-5.5%)* 10/10/2004 64 0.872 -0.6 Total Hip(Right) 01/15/2021 80 0.820 -1.0 -0.045(-5.2%)# -0.036(-4.2%)# 08/09/2015 74 0.856 -0.7 -0.009(-1.1%)# 0.050(6.2%)* 07/23/2013 72 0.806 -1.1 -0.059(-6.8%)# -0.014(-1.7%)# 06/23/2010 69 0.820 -1.0 -0.046(-5.3%)* -0.023(-2.7%) 05/14/2007 66 0.842 -0.8 -0.023(-2.7%) -0.023(-2.7%) 10/10/2004 64 0.865 -0.6 *Denotes significance at 95% confidence level, LSC for AP Spine = 0.022 g/cm2, LSC for Total Hip = 0.027 g/cm2 Clinical Information Provided by Patient:
--- NOTE | ~2021-01-15 | MM_ITS ---
EXAMINATION: MM screening tresa BI w corky HISTORY: Screening TECHNIQUE: Craniocaudal and mediolateral oblique 3-D tomosynthesis images were obtained and synthetic 2-D images were generated. CAD analysis was submitted and interpreted. COMPARISON: Comparison to multiple prior studies sequentially, with oldest reviewed study dated 08/08. BREAST PARENCHYMAL COMPOSITION: Breast composed of scattered areas of fibroglandular density. FINDINGS: There is no evidence of suspicious mass, calcification, or architectural distortion to sugg est malignancy in either breast. There has been no suspicious interval change. IMPRESSION: 1. No mammographic evidence of malignancy. 2. Recommend routine screening mammography in one year. BI-RADS Category 1: Negative Reviewed, dictated and finalized at location A. LVING INVENTORY CLERK
== END 2021-01-15 09:27 | disposition home or self-care (01) ==
LOC: ANHIMG 09:30
PROVIDERS: PCP Internal Medicine; Visit Provider Internal Medicine
DX: Z12.31 Encounter for screening mammogram for malignant neoplasm of breast (principal); M85.89 Other specified disorders of bone density and structure, multiple sites; S52.122D Displaced fracture of head of left radius, subsequent encounter for closed fracture with routine healing
CPT/HCPCS: 77063; 77067; 77080

== ENCOUNTER 2022-03-10 08:13 | Outpatient (CLI) | payer MEDICARE, SELFPAY ==
--- NOTE | ~2022-03-10 | MM_ITS ---
EXAMINATION: MM screening tresa BI w corky HISTORY: Screening TECHNIQUE: Craniocaudal and mediolateral oblique 3-D tomosynthesis images were obtained and synthetic 2-D images were generated. CAD analysis was submitted and interpreted. COMPARISON: Comparison to multiple prior studies sequentially, with oldest reviewed study dated 06/2016. BREAST PARENCHYMAL COMPOSITION: There are scattered areas of fibroglandular density. FINDINGS: There are benign right breast calcifications unchanged. There is no evidence of suspicious mass, calcification, or architectural distortion to suggest malignancy in either breast. There has be en no suspicious interval change. IMPRESSION: 1. No mammographic evidence of malignancy. 2. Recommend routine screening mammography in one year. BI-RADS Category 2: Benign finding(s). Reviewed, dictated and finalized at location A. IS DIRECTOR
== END 2022-03-10 08:14 | disposition home or self-care (01) ==
LOC: ANHIMG 08:15
PROVIDERS: PCP Internal Medicine; Visit Provider Obstetrics & Gynecology
DX: Z12.31 Encounter for screening mammogram for malignant neoplasm of breast (principal)
CPT/HCPCS: 77063; 77067

== ENCOUNTER → 2022-10-10 13:45 | Outpatient (CLI) | payer MEDICARE, SELFPAY ==
--- NOTE | ~2022-10-10 | XR_ITS ---
XR shoulder RT min 2V DATE: 10/10/2022 14:11 INDICATION: Right shoulder pain TECHNIQUE: 4 views COMPARISON: None FINDINGS: There is joint space narrowing and spurring at the right, clavicular joint consistent with degenerative change. No fracture or dislocation, periosteal reaction or bone destruction. Osteopenia. IMPRESSION: Degenerative change at the right acromioclavicular joint Osteopenia Reviewed, dictated and finalized at location L.
== END ==
PROVIDERS: PCP Internal Medicine; Visit Provider Internal Medicine
DX: M25.511 Pain in right shoulder (principal); M85.88 Other specified disorders of bone density and structure, other site
CPT/HCPCS: 73030

== ENCOUNTER 2023-04-20 08:52 | Outpatient (CLI) | payer MEDICARE, SELFPAY ==
--- NOTE | ~2023-04-20 | MM_ITS ---
EXAMINATION: MM screening tresa BI w corky HISTORY: Screening mammogram TECHNIQUE: Craniocaudal and mediolateral oblique 3-D tomosynthesis images were obtained and synthetic 2-D images were generated. CAD analysis was submitted and interpreted. COMPARISON: 03/10/2022, 01/2021 bilateral screening mammogram examinations BREAST PARENCHYMAL COMPOSITION: There are scattered areas of fibroglandular density. FINDINGS: Multiple bilateral breast calcifications, more numerous on the right are again noted There is no evidence of suspicious mass, calcification, or architectural distortion to suggest malignancy i n either breast. There has been no suspicious interval change. IMPRESSION: 1. No mammographic evidence of malignancy. 2. Recommend routine screening mammography in one year. BI-RADS Category 2: Benign finding(s). Reviewed, dictated and finalized at location A. [employer]
== END 2023-04-20 08:53 | disposition home or self-care (01) ==
LOC: ANHIMG 08:54
PROVIDERS: PCP Internal Medicine; Visit Provider Physician Assistant
DX: Z12.31 Encounter for screening mammogram for malignant neoplasm of breast (principal)
CPT/HCPCS: 77063; 77067

== ENCOUNTER 2023-11-06 08:02 | Outpatient (CLI) | payer MEDICARE, SELFPAY ==
--- NOTE | ~2023-11-06 | DEXA_ITS ---
Bone Density Report Name: JEEVAN GONZALEZ Age: 83 Sex: Female Ethnicity: White Date of : 1940 Indication: osteopenia; Referring Provider: GISELLASITA Study: Bone densitometry was performed. Exam Date: November 06, 2023 Accession number: [id number] Bone Density: Region BMD T-score Z-score Classification AP Spine(L1-L4) 1.315 2.4 5.2 Normal Femoral Neck (Left) 0.637 -1.9 0.5 Osteopenia Total Hip (Left) 0.793 -1.2 1.0 Osteopenia Femoral Neck (Right) 0.644 -1.8 0.5 Osteopenia Total Hip (Right) 0.738 -1.7 0.5 Osteopenia Total Hip Mean 0.765 -1.5 0.8 Osteopenia World Health Organization criteria for BMD impression classify patients as: Normal (T-score at or above -1.0), Osteopenia (T-score between -1.0 and -2.5), or Osteoporosis (T-score at or below -2.5). 10-year Fracture Risk(1): Major Osteoporotic Fracture 8.1% Hip Fracture 2.8% Reported Risk Factors: [place] (), Neck BMD=0.637, BMI=10.6 (1) FRAX(R) Version 3.08. Fracture probability calculated for an untreated patient. Fracture probability may be lower if the patient has received treatment. Previous Exams: Region Exam Age BMD T-score BMD Change BMD Change Date g/cm2 vs Baseline vs Previous AP Spine (L1-L4) 11/06/2023 83 1.315 2.4 -0.001 (-0.1%) 0.009 (0.7%) 01/15/2021 80 1.306 2.4 -0.010 (-0.8%) -0.040 (-3.0%) 08/09/2015 74 1.346 2.7 0.030 (2.3%)* 0.030 (2.3%)* 07/23/2013 72 1.316 2.4 Total Hip(Left) 11/06/2023 83 0.793 -1.2 0.010 (1.3%) -0.012 (-1.5%) 01/15/2021 80 0.805 -1.1 0.022 (2.8%)# -0.098 (-10.9% 08/09/2015 74 0.903 -0.3 0.120 (15.3%)* 0.120 (15.3%)* 07/23/2013 72 0.783 -1.3 Total Hip(Right) 11/06/2023 83 0.738 -1.7 -0.068 (-8.5%) -0.083 (-10.1% 01/15/2021 80 0.820 -1.0 0.014 (1.8%)# -0.036 (-4.2%) 08/09/2015 74 0.856 -0.7 0.050 (6.2%)* 0.050 (6.2%)* 07/23/2013 72 0.806 -1.1 *Denotes significance at 95% confidence level, LSC for AP Spine = 0.022 g/cm2, LSC for Total Hip = 0.027 g/cm2 # Denotes dissimilar scan types or analysis methods Clinical Information Provided by Patient: Has used the following medications: Vitamin D Patient maximum height was 66 Menopause Age: 51 Does not regularly consume dairy products Drinks caffeinated beverages Onset of menses at age 14 Number of children 5 Impression: The patient has low bone mass, based on th
== END 2023-11-06 08:03 | disposition home or self-care (01) ==
PROVIDERS: PCP Family Medicine; Visit Provider Nurse Practitioner Family
DX: Z78.0 Asymptomatic menopausal state (principal); M85.852 Other specified disorders of bone density and structure, left thigh; M85.851 Other specified disorders of bone density and structure, right thigh
CPT/HCPCS: 77080

== ENCOUNTER 2023-11-24 08:35 | Emergency (ER) | payer MEDICARE, SELFPAY ==
[2023-11-24 08:39] VITALS: BP 164/83; PULSE 71; RESP 16; TEMP 36.5; O2SAT 99
--- NOTE | 2023-11-24 09:03 | PC.NURSE ---
no bleeding at this time
--- NOTE | 2023-11-24 09:06 | ED_ITS ---
HPI - General Adult General Chief complaint: Epistaxis Stated complaint: nosebleed Time Seen by Provider: 11/24/23 08:55 History of Present Illness HPI narrative: 83-year-old female presenting to the emergency department for evaluation for epistaxis. Patient is not on any blood thinners. Patient denies any falls or injuries. Patient states that she woke up this morning she was having some bleeding. Patient states she did attempt to use an ice pack and pinching. Patient demonstrated her pinching and she was pinching the bony bridge of her nose and not the soft tissues. Regardless hemostasis was achieved upon arrival to the emergency department. At time of initial evaluation patient has no anterior or posterior bleeding. Related Data Home Medications Medication Instructions Recorded Confirmed aspirin 81 mg tablet,delayed 81 mg PO DAILY 02/25/19 03/13/23 release ergocalciferol (vitamin D2) 1,250 50,000 unit PO WEEKLY 02/25/19 03/13/23 mcg (50,000 unit) capsule [id number] 8 mg-folic 400 1 tablet PO DAILY 02/26/19 03/13/23 mcg-K 50 mcg-lutein 300 mcg tablet (Centrum Silver Women) Allergies Allergy/AdvReac Type Severity Reaction Status Date / Time No Known Allergies Allergy Verified 09/18/23 11:20 Review of Systems Review of Systems: All systems reviewed & are unremarkable except as noted in HPI and below PMFSH Past Medical History Medical History (Updated 11/24/23 @ 10:12 by Deniz Wilson MD) Acid reflux Adenomatous colon polyp Allergies Essential (primary) hypertension GERD (gastroesophageal reflux disease) Hypertension Overweight (BMI 25.0-29.9) Pure hypercholesterolemia Surgical History Surgical History H/O tubal ligation Hx of cataract surgery S/P appendectomy S/P cholecystectomy S/P foot surgery S/P tonsillectomy Family History Family History Sibling Patient's brother is in good health Family history of malignant neoplasm of breast in first degree relative Acute myocardial infarction Family history of diabetes mellitus in first degree relative Family history of heart disease in male family member before age 55 Father Cerebrovascular accident, Onset Age: 89 Family history of Parkinson's disease Family history of diabetes mellitus in first degree relative Mother Patient's mother is Family history of congestive heart failure Other Diabetes mellitus Family history of allergic disorder Family history of cardiovascular disease Hypertension Social History Social History Smoking status: Never smoker Second hand tobacco smoke exposure: No Alcohol intake: current Drinks per week: 4 Substance use: never Lack of Transportation: No Lack of Food: Never True Current Housing: I Have Housing Concerned About Future Housing: No Difficulty Paying Gas/Electric Bills: No Difficulty Paying for Meds: No Currently Unemployed: No Education: High School Diploma/GED Difficulty w/ Childcare or Family Care: No Living arrangements: with family Gender identity (if verbalized by the patient): Female Spiritual care concerns: No Exam Narrative: APPEARANCE: Well appearing, no pain, no distress, well-nourished. HEAD: normocephalic, atraumatic. EYES: PERRLA/EOMI, conjunctivae clear. NOSE: Normal no drainage. No active bleeding EARS:TMS clear with good light reflex. THROAT: Pharynx clear, no exudate. NECK: Supple. No adenopathy, no masses. RESPIRATORY: Airway patent, respirations nonlabored. Clear to auscultation bilaterally, no rales, rhonchi, wheezing. CARDIOVASCULAR: Regular rate and rhythm without murmurs rubs or gallops. ABDOMINAL: Soft, nontender, nondistended, normal bowel sounds MUSCULOSKELETAL: Moves all extremities. Strength/ROM intact, No edema, No calf tenderness. NEURO: Alert. Cranial nerves II through XII intact. SKIN: Warm, dry. Normal Color Course Vital Signs Vital signs: Vital Signs Temperature 97.7 F 11/24/23 08:39 Pulse Rate 71 11/24/23 08:39 Respiratory Rate 16 11/24/23 08:39 Blood Pressure 164/83 H 11/24/23 08:39 Pulse Oximetry 99 11/24/23 08:39 Oxygen Delivery Room Air 11/24/23 08:39 Temperature 97.7 F 11/24/23 08:39 Pulse Rate 71 11/24/23 08:39 Respiratory Rate 16 11/24/23 10:18 Blood Pressure 164/83 H 11/24/23 08:39 Pulse Oximetry 99 11/24/23 08:39 Oxygen Delivery Room Air 11/24/23 08:39 Medical Decision Making MDM Narrative Medical decision making narrative: 83-year-old female presenting ED for evaluation for epistaxis that is resolved upon arrival to the emergency department. Patient is afebrile with no leukocytosis and a stable hemoglobin of 12.5. Patient has a normal INR. No acute abnormalities on the patient's CMP. Patient is well-appearing. No questions concerns at time of discharge. Patient was provided nasal clamps and instructions on ease. Patient was also encouraged close follow-up with her primary care physician. Differential Diagnosis Differential Diagnosis: Epistaxis Vital Signs Vital Signs: Vital Signs Temperature 97.7 F 11/24/23 08:39 Pulse Rate 71 11/24/23 08:39 Respiratory Rate 16 11/24/23 08:39 Blood Pressure 164/83 H 11/24/23 08:39 Pulse Oximetry 99 11/24/23 08:39 Oxygen Delivery Room Air 11/24/23 08:39 Temperature 97.7 F 11/24/23 08:39 Pulse Rate 71 11/24/23 08:39 Respiratory Rate 16 11/24/23 10:18 Blood Pressure 164/83 H 11/24/23 08:39 Pulse Oximetry 99 11/24/23 08:39 Oxygen Delivery Room Air 11/24/23 08:39 Lab Data 11/24/23 09:29 11/24/23 09:29 Labs: Lab Results 11/24/23 Range/Units 09:29 WBC 4.5 (4.5-10.0) K/mm3 RBC 4.25 (4.2-5.4) M/mm3 Hgb 12.5 (12.0-15.0) g/dL Hct 38.0 (37.0-47.0) % MCV 89.4 (80-100) fl MCH 29.4 (26-34) pg MCHC 32.9 (32-36) g/dl RDW 13.4 (11.5-14.5) % Plt Count 303 (150-375) k/mm3 MPV 10.3 (7.4-10.4) fl Immature Gran % (Auto) 0.7 H (0-0.5) % Neut % (Auto) 52.5 (45.5-73.1) % Lymph % (Auto) 27.4 (18.3-44.2) % Bureau % (Auto) 13.9 H (2.6-8.5) % Eos % (Auto) 4.6 H (0-4.4) % Baso % (Auto) 0.9 (0.2-1.2) % Lymph # (Auto) 1.24 (0.9-3.2) K/mm3 Bureau # (Auto) 0.6 (0.1-0.6) K/mm3 Eos # (Auto) 0.2 (0-0.3) K/mm3 Baso # (Auto) 0.0 (0.0-0.1) K/mm3 Abs Immat Gran (auto) 0.03 (0.00-0.031) K/mm3 Absolute Neuts (auto) 2.4 (1.3-6.7) K/mm3 Absolute Nucleated RBC 0.000 (0.0-0.012) K/mm3 Nucleated RBC % 0.0 (0.0-0.2) % PT 14.0 (11.1-14.7) Seconds INR 1.0 APTT 29.0 (22.3-36.8) Seconds Sodium 140 (137-145) mmol/L Potassium 4.0 (3.4-5.0) mmol/L Chloride 107 (98-107) mmol/L Carbon Dioxide 23 (22-30) mmol/L Anion Gap 10 (4-12) mmol/L BUN 13 D (7-17) mg/dL Creatinine 0.60 L (0.7-1.0) mg/dL Estim Creat Clear Calc 53 ml/min Estimated GFR > 60 (59 - ) Glucose 96 (65-110) mg/dL Calcium 9.4 (8.4-10.2) mg/dL Total Bilirubin 0.8 (0.2-1.3) mg/dL AST 34 (14-36) U/L ALT 22 (6-35) U/L Alkaline Phosphatase 59 (38-126) U/L Total Protein 8.0 (6.3-8.2) g/dL Albumin 4.5 (3.5-5.1) g/dL Discharge Plan Discharge Clinical Impression: Epistaxis Patient Disposition: Home, Self-Care Condition: Stable Instructions: Antibiotic Form, Nosebleed (ED) Additional Instructions: Nasal clamps as directed for recurrent epistaxis. Have close follow-up with DARNELL Casanova. If you have any worsening symptoms then please call or return emergency department. Prescriptions: No Action Centrum Silver Women 8 mg iron-400 mcg-300 mcg tablet 1 tablet PO DAILY losartan 100 mg tablet See Rx Instructions .ROUTE .COMPLEX Qty: 100 2RF Dose Instruction: TAKE 1 TABLET BY MOUTH DAILY Rx Instructions: TAKE 1 TABLET BY MOUTH DAILY gemfibrozil 600 mg tablet See Rx Instructions .ROUTE .COMPLEX Qty: 200 2RF Dose Instruction: TAKE 1 TABLET BY MOUTH TWICE DAILY Rx Instructions: TAKE 1 TABLET BY MOUTH TWICE DAILY aspirin 81 mg tablet,delayed release (DR/EC) 81 mg PO DAILY ergocalciferol (vitamin D2) 1,250 mcg (50,000 unit) capsule 50,000 unit PO WEEKLY valacyclovir [Valtrex] 1 gram tablet 2,000 mg PO BID Qty: 4 2RF Rx Instructions: 2 tabs BID for 1 day dicyclomine 20 mg tablet 20 mg PO QHS Qty: 30 0RF omeprazole 40 mg capsule,delayed release(DR/EC) 40 mg PO DAILY Qty: 90 1RF Follow-up/Referrals: Lima,Faustino Downs MD [Primary Care Provider] - Luan Banuelos MD [Physician] -
[2023-11-24 09:35] LABS: Basophils Percent Auto 0.9 % (0.2-1.2); Eosinophils Absolute Auto 0.2 K/mm3 (0-0.3); Eosinophils Percent Auto 4.6 % (0-4.4); Hemoglobin 12.5 g/dL (12.0-15.0); Immature Granulocyte Absolute 0.03 K/mm3 (0.00-0.031); Immature Granulocyte Percent A 0.7 % (0-0.5); Lymphocytes Absolute Auto 1.24 K/mm3 (0.9-3.2); Lymphocytes Percent Auto 27.4 % (18.3-44.2); Mean Corpuscular HGB Conc 32.9 g/dl (32-36); Mean Corpuscular Hemoglobin 29.4 pg (26-34); Mean Corpuscular Volume 89.4 fl (80-100); Mean Platelet Volume 10.3 fl (7.4-10.4); Monocytes Absolute Auto 0.6 K/mm3 (0.1-0.6); Monocytes Percent Auto 13.9 % (2.6-8.5); Neutrophils Absolute Auto 2.4 K/mm3 (1.3-6.7); Neutrophils Percent Auto 52.5 % (45.5-73.1); Platelet Count Result 303 k/mm3 (150-375); Red Blood Count 4.25 M/mm3 (4.2-5.4); Red Cell Distribution Width 13.4 % (11.5-14.5); White Blood Count 4.5 K/mm3 (4.5-10.0)
[2023-11-24 09:49] LABS: Alanine Aminotransferase 22 U/L (6-35); Albumin Level 4.5 g/dL (3.5-5.1); Alkaline Phosphatase 59 U/L (38-126); Anion Gap 10 mmol/L (4-12); Aspartate Amino Transferase 34 U/L (14-36); Bilirubin,Total 0.8 mg/dL (0.2-1.3); Blood Urea Nitrogen 13 mg/dL (7-17); Calcium 9.4 mg/dL (8.4-10.2); Carbon Dioxide 23 mmol/L (22-30); Chloride 107 mmol/L (98-107); Estimated CRCL calculation 53 ml/min; Estimated Glomerular Filt Rate > 60; Glucose 96 mg/dL (65-110); Sodium 140 mmol/L (137-145)
[2023-11-24 10:18] VITALS: RESP 16
== END 2023-11-24 10:19 | disposition home or self-care (01) ==
PROVIDERS: Emergency Provider Emergency Medicine; PCP Family Medicine
DX: R04.0 Epistaxis (principal); I10 Essential (primary) hypertension; E78.00 Pure hypercholesterolemia, unspecified; E66.3 Overweight; Z68.25 Body mass index [BMI] 25.0-25.9, adult; K21.9 Gastro-esophageal reflux disease without esophagitis; Z86.0101 Personal history of adenomatous and serrated colon polyps; Z98.49 Cataract extraction status, unspecified eye; Z90.49 Acquired absence of other specified parts of digestive tract
CPT/HCPCS: 36415; 80053; 85025; 85610; 85730; 99281; 99283

== ENCOUNTER 2023-11-28 10:22 | Emergency (ER) | payer MEDICARE, SELFPAY ==
[2023-11-28 10:23] VITALS: BP 159/94; PULSE 83; RESP 16; TEMP 36.4; O2SAT 98
--- NOTE | 2023-11-28 10:35 | ED.EPISTAXIS ---
HPI - Epistaxis General Chief complaint: Epistaxis Stated complaint: nose bleed Time Seen by Provider: 11/28/23 10:44 83 year old female presents with bleeding out of her right nasal passage started this morning. Patient states she takes a baby aspirin daily. Patient states she has similar nasal bleeding over the weekend and had come to the ER. Patient denies any other symptoms GENERAL: Well-appearing, well-nourished, and in no acute distress. HEAD: Normocephalic, atraumatic. EYES: PERRLA and EOMI. ENT: Nares clear, no rhinorrhea, active bleeding on the right nasal passage. Mucous membranes moist. NECK: Supple. CHEST: Clear to auscultation. No respiratory distress. HEART: Regular rate and rhythm. No murmur heard. Normal peripheral pulses. ABDOMEN: Soft, nontender, nondistended, normal active bowel sounds. EXTREMITIES: Normal range of motion. No edema. SKIN: Warm, dry, no rash. NEURO: No focal deficits. Alert and oriented x3. PSYCH: Normal mood and affect. History of Present Illness HPI Narrative: 83-year-old female presents with bleeding of the right nasal passage since this morning. Patient states she is only on a baby aspirin. Patient has a history of nosebleeds and was seen in the ER on Sunday. Patient states she has had to have ENT Cauterize in the past. Patient denies any trauma. No other complaints Duration: constant Related Data Home Medications Medication Instructions Recorded Confirmed aspirin 81 mg tablet,delayed 81 mg PO DAILY 02/25/19 03/13/23 release ergocalciferol (vitamin D2) 1,250 50,000 unit PO WEEKLY 02/25/19 03/13/23 mcg (50,000 unit) capsule [id number] 8 mg-folic 400 1 tablet PO DAILY 02/26/19 03/13/23 mcg-K 50 mcg-lutein 300 mcg tablet (Centrum Silver Women) Allergies Allergy/AdvReac Type Severity Reaction Status Date / Time No Known Allergies Allergy Verified 09/18/23 11:20 Review of Systems Review of Systems: A 10 system review of systems was completed on the patient and is negative except for what is stated in the HPI. Nursing and ancillary documentation was reviewed. [facility] Past Medical History Medical History (Updated 11/28/23 @ 12:17 by Alec Parnell APRN) Acid reflux Adenomatous colon polyp Allergies Essential (primary) hypertension GERD (gastroesophageal reflux disease) Hypertension Overweight (BMI 25.0-29.9) Pure hypercholesterolemia Surgical History Surgical History H/O tubal ligation Hx of cataract surgery S/P appendectomy S/P cholecystectomy S/P foot surgery S/P tonsillectomy Family History Family History Sibling Patient's brother is in good health Family history of malignant neoplasm of breast in first degree relative Acute myocardial infarction Family history of diabetes mellitus in first degree relative Family history of heart disease in male family member before age 55 Father Cerebrovascular accident, Onset Age: 89 Family history of Parkinson's disease Family history of diabetes mellitus in first degree relative Mother Patient's mother is Family history of congestive heart failure Other Diabetes mellitus Family history of allergic disorder Family history of cardiovascular disease Hypertension Social History Social History Smoking status: Never smoker Second hand tobacco smoke exposure: No Alcohol intake: current Drinks per week: 4 Substance use: never Lack of Transportation: No Lack of Food: Never True Current Housing: I Have Housing Concerned About Future Housing: No Difficulty Paying Gas/Electric Bills: No Difficulty Paying for Meds: No Currently Unemployed: No Education: High School Diploma/GED Difficulty w/ Childcare or Family Care: No Living arrangements: with family Gender i
[2023-11-28] MEDS: OXYMETAZOLINE HCL 0.05% NAS 15 ML BTL (*BKC) 1 SPRAY NASAL (11:06)
[2023-11-28] MEDS: WATER FOR IRRIGATION, STERILE 500 ML BOTTLE IRRIGATION (11:15)
--- NOTE | 2023-11-28 12:35 | PC.NURSE ---
Provider made aware patients rhino rocket appeared fully saturated during discharge. Provider reports he was aware and that she had been bleeding a lot . Provider ok with patient being discharged as is.
[2023-11-28 12:39] VITALS: BP 163/83; PULSE 76; RESP 18; O2SAT 98
== END 2023-11-28 12:40 | disposition home or self-care (01) ==
PROVIDERS: Emergency Provider Nurse Practitioner Family; PCP Family Medicine
DX: R04.0 Epistaxis (principal); I10 Essential (primary) hypertension; E78.00 Pure hypercholesterolemia, unspecified; K21.9 Gastro-esophageal reflux disease without esophagitis; Z86.0101 Personal history of adenomatous and serrated colon polyps; Z98.49 Cataract extraction status, unspecified eye; Z90.49 Acquired absence of other specified parts of digestive tract; Z79.82 Long term (current) use of aspirin; Z79.899 Other long term (current) drug therapy
CPT/HCPCS: 30901; 99283; A9270

== ENCOUNTER 2024-04-22 09:11 | Outpatient (CLI) | payer MEDICARE, SELFPAY ==
--- NOTE | ~2024-04-22 | MM_ITS ---
EXAMINATION: MM screening tresa BI w corky HISTORY: Screening mammogram, family history of breast cancer in her sister. TECHNIQUE: Craniocaudal and mediolateral oblique 3-D tomosynthesis images were obtained and synthetic 2-D images were generated. CAD analysis was submitted and interpreted. COMPARISON: 04/20/2023, 03/10/2022, 01/15/2021 BREAST PARENCHYMAL COMPOSITION:Not Dense. There are scattered areas of fibroglandular density. FINDINGS: No suspicious mass, calcification, or architectural distortion are identified in either iona ast to suggest malignancy. There has been no suspicious interval change. IMPRESSION: No mammographic evidence of malignancy. Recommend routine screening mammography in one year. BI-RADS Category 1: Negative Reviewed, dictated and finalized at location .
--- OUTSIDE RECORDS SUMMARY | 2024-04-22 09:52 | XMS_ITS | Referral Summary ---
Author Organization [facility] [address] Address [address] [place] [id number] Care Team Providers Care Brand Coordinator Name Role Phone Gabby Quevedo NP Primary Care Provider [phone] Encounters Date Type Department Care Team Description 04/07/2024 3:06 PM HEALTH PROMOTION OFFICER - 04/07/2024 11:59 PM HEALTH PROMOTION OFFICER Hospital Encounter [facility] [address] [place] [id number] Chronic pain of right ankle Discharge Disposition: Discharge to home or self care 04/07/2024 1:09 PM HEALTH PROMOTION OFFICER - 04/07/2024 11:59 PM HEALTH PROMOTION OFFICER Hospital Encounter [facility] [address] [place] [address] Advanced Medicine [address] [place] [id number] Dave Nguyen MD Spondylosis without myelopathy or radiculopathy, lumbar region (Primary Dx); Chronic pain of right ankle; Chronic right-sided low back pain with right-sided sciatica Discharge Disposition: Discharge to home or self care 03/06/2024 Orders Only [facility] Primary Care at [address] [address] Gabby Quevedo NP 03/05/2024 Telephone [facility] Primary Care at [address] [address] Gabby Quevedo NP Test Results (X-rays) 03/04/2024 Telephone [facility] Primary Care at [address] [address] Gabby Quevedo NP Medical Question/Miscellaneo us 03/03/2024 3:15 PM HEALTH PROMOTION OFFICER Ancillary Procedure [facility] Imaging at [address] [address] Chronic right-sided low back pain with right-sided sciatica 03/03/2024 2:00 PM HEALTH PROMOTION OFFICER Office Visit [facility] Primary Care at [address] [address] Gabby Quevedo NP Chronic pain of right ankle (Primary Dx); Right leg pain; Skin lesion of left lower limb; Chronic right-sided low back pain with right-sided sciatica 02/04/2024 Telephone [facility] Primary Care at [address] [address] Gabby Quevedo NP 01/29/2024 1:00 PM HEALTH PROMOTION OFFICER Office Visit [facility] Primary Care at [address] [address] Gabby Quevedo NP Annual physical exam (Primary Dx); Primary insomnia; Hypertriglyceridemia from Last 3 Months Allergies No known active allergies Medications aspirin 81 mg enteric coated tablet Take by mouth 02/02/2016 Activ e ergocalciferol (VITAMIN D) 50,000 unit capsule 02/10/2015 Active FA/mv,Ca,iron,m in/lycopene/lut (MULTIVITAL ORAL) Take by mouth Active acetaminophen ER (TYLENOL) 650 mg 8 hr tabletIndicatio ns:Pain Take 1 tablet (650 mg total) by mouth nightly as needed for pain 100 tablet 3 01/29/2024 Active gemfibroziL (LOPID) 600 mg tablet Take 1 tablet (600 mg total) by mouth daily Decrease dose to one daily 90 tablet 1 01/29/2024 Active losartan (COZAAR) 100 mg tablet Take 1 tablet (100 mg total) by mouth daily 90 tablet 3 02/04/2024 02/04/20 25 Active naproxen (NAPROSYN) 500 mg tablet Take 1 tablet (500 mg total) by mouth nightly as needed for pain (pain) 30 tablet 3 03/03/2024 Active traMADoL (ULTRAM) 50 mg tablet Take 1 tablet (50 mg total) by mouth nightly as needed for pain 30 tablet 03/06/2024 Active Active Problems Problem Noted Date Diagnosed Date Right leg pain 03/03/2024 Skin lesion of left lower limb 03/03/2024 Assessment & Plan (03/03/2024 2:45 PM HEALTH PROMOTION OFFICER): She has not had this long but it seems to be changing. Concern for possible basal cell carcinoma. I referred her to Dermatology and encouraged her to reach out to them and make the appointment. Chronic pain of right ankle 03/03/2024 Assessment & Plan (03/03/2024 2:45 PM HEALTH PROMOTION OFFICER): Patient pointed to her right ankle when she was discussing her leg pain. So I did order an x-ray of her ankle just rule out osteoarthritis of that ankle. Primary insomnia 01/29/2024 Assessment & Plan (01/29/2024 1:45 PM HEALTH PROMOTION OFFICER): Stop zz-quill/ melatonin, which she was taking at 20mg, and isn't helping anyway Start lunesta 1mg at bedtime Tylenol arthritis 650mg at bedtime for pain F/u 6 months, but may call for any problems Change in voice 11/09/2023 Assessment & Plan (11/09/2023 3:41 PM CDT): I do agree that she should see a neurologist for this. She could be dealing with something neurologic such as Parkinson's disease. I discussed this with her and her granddaughter. I do not feel that right now speech therapy is going to help much more. I also do not think that a video strobe exam is going to be helpful. Hypertriglyceridemia 10/31/2023 Assessment & Plan (01/29/2024 2:29 PM HEALTH PROMOTION OFFICER): Was on gemfibrozil 600 mg b.I.d.. Having right leg cramping at night. I am going to have her discontinue the gemfibrozil at bedtime. Continue once daily. I would like to see if that helps with the leg pain at night. Assessment & Plan (10/31/2023 7:47 AM CDT): Lipid panel in [facility] from June 02, 2023. Labs are stable. Continue gemfibrozil Memory changes 10/31/2023 Assessment & Plan (10/31/2023 7:49 AM CDT): Having difficulty recalling names and dates. Slums eval shows mild cognitive impairment. Will refer to neurology for further evaluation Globus sensation 10/31/2023 Assessment & Plan (11/09/2023 3:38 PM CDT): I reassured her that I do not find any significant abnormalities on her throat exam. She has a globus sensation which I explained can be fairly common. I basically offered reassurance and did not recommend any treatment as anything that can be done. She and her granddaughter understand. Assessment & Plan (10/31/2023 7:50 AM CDT): Denies any difficulty swallowing foods or eating but endorses a feeling of clamminess and back of throat. Referral to ENT Annual physical exam 10/31/2023 Assessment & Plan (01/29/2024 1:44 PM HEALTH PROMOTION OFFICER): -Recommended: Healthy diet. Avoiding junk food/fast food. -30 minutes of exercise most days of the week. Increase to 45 minutes for weight loss. Health Maintenance reviewed - upd. -Influenza vaccine every year Recommend: -There are no preventive care reminders to display for this patient. -F/u in 1 year for Annual PE or sooner if needed Assessment & Plan (10/31/2023 7:50 AM CDT): I have reviewed patient's history, family history, current med list and plan of care. Rx refills given. Discussed relevant follow up testing and specialty follow-up needed. Referrals placed as needed. Dysarthria 10/18/2023 Assessment & Plan (10/31/2023 7:45 AM CDT): Continue speech therapy. Refer to Neurology. Speech therapy recommended ENT referral. Will also refer to ENT Spell of change in speech 07/11/2023 Aphasia 07/11/2023 Overview (07/11/2023): Unknown Origin Assessment & Plan (10/31/2023 7:46 AM CDT): MRI was negative. Refer to Neurology. Continue speech therapy Spondylosis without myelopat hy or radiculopathy, lumbar region 02/29/2016 Spondylosis without myelopat hy or radiculopathy, lumbosacral region 02/28/2016 Lumbago with sciatica, unspecified side 02/22/19 Assessment & Plan (03/03/2024 2:44 PM HEALTH PROMOTION OFFICER): Patient sees the chiropractor. Leg pain could be sciatica that is related to the back pain. I do not see any x-rays in her chart but she was somewhat new to us. I am going to order an x-ray of lumbar spine today. I did start her on naproxen 500 mg at bedtime. She may continue her not continue the Tylenol at bedtime as well. 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 I removed a cerumen impaction on the left side to help with their use. She tolerated well. Sore throat 11/09/2023 01/29/2024 Assessment & Plan (11/09/2023 3:40 PM CDT): I think it is possibly due to some reflux disease but I really did not recommend aggressive PPIs treatment as she may be having some problems with neurologic changes. Would hate to exacerbate this. She understands and isn't really want to pursue anything. Weakness 03/25/2020 01/29/2024 Multiple fractures of ribs, left side, initial encounter for closed fracture 03/25/2020 Immunizations Immunization Administration Dates Next Due Hep A, Adult 08/20/2007,02/08/2007 Influenza, Quad, Adjuvantate d, Intramuscular 12/01/2022,11/08/2020 Influenza, Quadrivalent, Hig h Dose, Preservative Free, Intrr 10/25/2021 Influenza, Trivalent, High D ose, Split, Preservative Free, Intramuscular 10/28/2018,10/16/2017,10/22/2016,11/13,10/25/2014 Influenza, Trivalent, IM (MDV) 10/23/2014,2013,10/24/2012 Influenza, Trivalent, Preser vative Free, Intramuscular 10/23/2019 Influenza, Unspecified 11/28/2023,2023(Deferred: Patient Refused),02/12/2023(Deferred: Patient Refused) Pneumococcal Conjugate PCV 13 10/25/2014 Pneumococcal Conjugate Pcv20 05/28/2023 RSV Vaccine, Pref, Recombina nt, Subunit, Adjuvanted, PF, IM (Arexvy) 01/17/2023 Tdap 10/23/2019 ZOSTER LIVE 10/17/2017,10/28/2007 ZOSTER Recombinant 02/14/2018 Social History Tobacco Use Types Packs/Day Years Used Date Smoking Tobacco: Never Cigarettes Tobacco Cessation:Counseling Given: Not Answered AUDIT-C Answer Date Recorded Q1: How often do you have a drink containing alc ohol? 2-3 times a week 04/07/2024 Q2: How many drinks containi ng alcohol do you have on a typical day when you are drinking? 1 or 2 04/07/2024 Q3: How often do you have si x or more drinks on one occasion? Never 04/07/2024 PHQ-2 Answer Date Recorded PHQ-2 Total Score (If total score is 3 or more points, staff should administer the PHQ-9) 0 10/29/2023 Comments No Sex and Gender Information Value Date Recorded Sex Assigned at Not on file Legal Sex Female 5:31 AM HEALTH PROMOTION OFFICER Gender Identity Female 06/12/2023 11:29 AM CDT Sexual Orientation Not on file Last Filed Vital Signs Vital Sign Reading Time Taken Comments Blood Pressure 149/71 04/07/2024 1:43 PM HEALTH PROMOTION OFFICER Pulse 81 04/07/2024 1:43 PM HEALTH PROMOTION OFFICER Temperature 36.4 C (97.5 F) 04/07/2024 1:43 PM HEALTH PROMOTION OFFICER Respiratory Rate 16 04/07/2024 1:43 PM HEALTH PROMOTION OFFICER Oxygen Saturation 96% 04/07/2024 1:43 PM HEALTH PROMOTION OFFICER Inhaled Oxygen Concentration - - Weight 68.9 kg (152 lb) 04/07/2024 1:43 PM HEALTH PROMOTION OFFICER Height 162.6 cm (5' 4 ) 04/07/2024 1:43 PM HEALTH PROMOTION OFFICER Body Mass Index 26.09 04/07/2024 1:43 PM HEALTH PROMOTION OFFICER Plan of Treatment Not on file Procedures Procedure Name Priority Date/Time Associated Diagnosis Comments XR ANKLE RIGHT 3 OR MORE VIEWS Schedule Routine, Read Routine (OP Routine) 04/07/2024 3:19 PM HEALTH PROMOTION OFFICER Chronic pain of right ankle XR TIBIA FIBULA RIGHT2 VIEWS Schedule Routine, Read Routine (OP Routine) 04/07/2024 3:19 PM HEALTH PROMOTION OFFICER Chronic pain of right ankle XR SPINE LUMBAR 2 OR 3 VIEWS Schedule Routine, Read Routine (OP Routine) 03/03/2024 2:55 PM HEALTH PROMOTION OFFICER Chronic right-sided low back pain with right-sided sciatica DEXA AXIAL SKELETON BONE DENSITY 1 OR MORE SITES Schedule Routine, Read Routine (OP Routine) 11/06/2023 Post-menopausal from Last 3 Months or Most Recently Relevant to Health Maintenance Results * X-ray ankle right 3+ views (04/07/2024 3:19 PM HEALTH PROMOTION OFFICER) Anatomical Region Laterality Modality Lower Extremities, Ankle Right Compute d Radiography 04/07/2024 4:50 PM HEALTH PROMOTION OFFICER Impressions 04/07/2024 4:50 PM HEALTH PROMOTION OFFICER 1. No acute osseous abnormality in the right tibia or fibula. 2. Mild tibiotalar osteoarthritis. Electronically signed by: Michael Apodaca D.O. Narrative 04/07/2024 4:50 PM HEALTH PROMOTION OFFICER EXAMINATION: XR TIBIA FIBULA RIGHT2 VIEWS, XR ANKLE RIGHT 3 OR MORE VIEWS HISTORY: Right ankle pain COMPARISON: None FINDINGS: Right tibia/fibula: No acute fracture or dislocation. Chondrocalcinosis in the visualized knee joint. Vessel calcifications. Right ankle: No acute fracture or dislocation. The ankle mortise and talar dome are intact. Mild tibiotalar osteoarthritis. Large plantar calcaneal spur. Procedure Note Michael Apodaca, DO - 04/07/2024 EXAMINATION: XR TIBIA FIBULA RIGHT2 VIEWS, XR ANKLE RIGHT 3 OR MORE VIEWS HISTORY: Right ankle pain COMPARISON: None FINDINGS: Right tibia/fibula: No acute fracture or dislocation. Chondrocalcinosis in the visualized knee joint. Vessel calcifications. Right ankle: No acute fracture or dislocation. The ankle mortise and talar dome are intact. Mild tibiotalar osteoarthritis. Large plantar calcaneal spur. IMPRESSION: 1. No acute osseous abnormality in the right tibia or fibula. 2. Mild tibiotalar osteoarthritis. Electronically signed by: Michael Apodaca D.O. Mani Sánchez MD IMG XR PROCEDURES F inal Result * XR Tibia Fibula Right 2 Views (04/07/2024 3:19 PM HEALTH PROMOTION OFFICER) Anatomical Region Laterality Modality Lower Extremities, Lower Leg Right Com puted Radiography 04/07/2024 4:50 PM HEALTH PROMOTION OFFICER Impressions 04/07/2024 4:50 PM HEALTH PROMOTION OFFICER 1. No acute osseous abnormality in the right tibia or fibula. 2. Mild tibiotalar osteoarthritis. Electronically signed by: Michael Apodaca D.O. Narrative 04/07/2024 4:50 PM HEALTH PROMOTION OFFICER EXAMINATION: XR TIBIA FIBULA RIGHT2 VIEWS, XR ANKLE RIGHT 3 OR MORE VIEWS HISTORY: Right ankle pain COMPARISON: None FINDINGS: Right tibia/fibula: No acute fracture or dislocation. Chondrocalcinosis in the visualized knee joint. Vessel calcifications. Right ankle: No acute fracture or dislocation. The ankle mortise and talar dome are intact. Mild tibiotalar osteoarthritis. Large plantar calcaneal spur. Procedure Note ApodacaMichael valladares, - 04/07/2024 EXAMINATION: XR TIBIA FIBULA RIGHT2 VIEWS, XR ANKLE RIGHT 3 OR MORE VIEWS HISTORY: Right ankle pain COMPARISON: None FINDINGS: Right tibia/fibula: No acute fracture or dislocation. Chondrocalcinosis in the visualized knee joint. Vessel calcifications. Right ankle: No acute fracture or dislocation. The ankle mortise and talar dome are intact. Mild tibiotalar osteoarthritis. Large plantar calcaneal spur. IMPRESSION: 1. No acute osseous abnormality in the right tibia or fibula. 2. Mild tibiotalar osteoarthritis. Electronically signed by: Michael Apodaca D.O. Mani Sánchez MD IMKavon XR PROCEDURES F inal Result * XR Spine Lumbar 2 or 3 Views (03/03/2024 2:55 PM HEALTH PROMOTION OFFICER) Anatomical Region Laterality Modality Spine N/A Digital Radiogra phy 03/04/2024 9:19 AM HEALTH PROMOTION OFFICER Narrative 03/04/2024 9:21 AM HEALTH PROMOTION OFFICER EXAM DESCRIPTION: XR SPINE LUMBAR 2 OR 3 VIEWS REASON FOR STUDY: sciatica - right LE pain Pt complains of RLE pain x couple of months. No known injury or prior surgery. FINDINGS: There is mild levocurvature of the lumbar spine. No acute fracture. Mild retrolisthesis of L3 on L4. There is ykwy-zl-jxhynpii L1-L4 and severe L4-S1 degenerative disc disease. Inferior lumbar facet osteoarthritis is present. Arterial atherosclerosis and right upper quadrant surgical clips are noted. IMPRESSION: Ojpu-pq-dveynyzy L1-L4 and severe L4-S1 degenerative disc disease with inferior lumbar facet osteoarthritis. THIS IS AN ELECTRONICALLY VERIFIED FINAL REPORT 03/04/2024 9:21 AM - Electronically signed by Elton Childers M.D. T: Report ID: [id number] Reading Location: [id number] Procedure Note Elton Childers MD - 03/04/2024 EXAM DESCRIPTION: XR SPINE LUMBAR 2 OR 3 VIEWS REASON FOR STUDY: sciatica - right LE pain Pt complains of RLE pain x couple of months. No known injury or priorsurgery. FINDINGS: There is mild levocurvature of the lumbar spine. No acutefracture. Mild retrolisthesis of L3 on L4. There is qqlg-de-wcwrgype L1-L4 andsevere L4-S1 degenerative disc disease. Inferior lumbar facet osteoarthritis is present. Arterial atherosclerosis and right upper quadrant surgical clipsare noted. IMPRESSION: Peof-ri-nwgebfjx L1-L4 and severe L4-S1 degenerative disc disease with inferior lumbar facet osteoarthritis. THIS IS AN ELECTRONICALLY VERIFIED FINAL REPORT 03/04/2024 9:21 AM - Electronically signed by Elton Childers M.D. T: Report ID: [id number] Reading Location: [id number] Gabby Quevedo RESIDENCE LEASING AGENT IMG XR PROCEDURES Final Resul t * Dexa Axial Skeleton Bone Density 1 or 2 Site (11/06/2023) Anatomical Region Laterality Modality Body N/A Radiographic Laura ging Gabby Quevedo RESIDENCE LEASING AGENT IMG DXA PROCEDURES Final Resu lt from Last 3 Months or Most Recently Relevant to Health Maintenance Insurance [facility] MDCR HMO REF [facility] MEDICARE Address: [address] [address] Care Teams Brand Coordinator Relationship Specialty Start Date End Date Gabby Quevedo NP PCP - General Family Medicine 10/29/23
--- OUTSIDE RECORDS SUMMARY | 2024-04-22 09:52 | XMS_ITS | Clinical Summary ---
Author Organization [facility] Address [address] [place] [address] Phone Care Team Providers Care Vp Construction Name Role Phone Prieto Neal DO Primary Care Provider [phone] Allergies No known active allergies Medications ergocalciferol (VITAMIN D) 52878 UNIT Capsule 4 02/10/2015 Active fluticasone (FLONASE) 50 MCG/ACT Suspension 3 03/04/2015 Active gemfibrozil (LOPID) 600 MG Tablet 03/24/2015 Active losartan (COZAAR) 50 MG Tablet 02/15/2015 Active aspirin EC 81 MG Tablet Delayed Response Take 81 mg by mouth daily. Active Multiple Vitamin (MULTI-VITAMIN PO) Take by mouth. Active diphenoxylate-atr opine (LOMOTIL) 2.5-0.025 MG Tablet TK 1 T PO QID PRF DH 10/13/2019 Active omeprazole (PriLOSEC) 40 MG CAPSULE DELAYED RELEASEIndication s:Gastroesophagea l reflux disease, esophagitis presence not specified Take 1 Cap by mouth daily. 90 Cap 1 11/10/2019 Active sodium sulfate-potassium sulfate-magnesium sulf (Suprep Bowel Prep Kit) 17.5-3.13-1.6 GM/177ML SolutionIndicatio ns:Irritable bowel syndrome with both constipation and diarrhea Drink 1st bottle 10-12 hours before procedure. Drink 2nd bottle 2 hours before procedure. 2 Bottle 11/10/2019 Active Active Problems No known active problems Immunizations Immunization Administration Dates Next Due Influenza Vaccine greater than 3 yrs 10/23/2014 Family History Medical History Relation Name Comments Diabetes Father Heart Disease Father Cancer Mother esophageal Asthma Sister 1 Heart Disease Sister 1 Diabetes Sister 2 x 2 Relation Name Status Comments Father Mother Sister 1 Sister 2 Social History Tobacco Use Types Packs/Day Years Used Date Smoking Tobacco: Never Smokeless Tobacco: Never Tobacco Cessation:Counseling Given: No Alcohol Use Standard Drinks/Week Comments Yes 0 (1 standard drink = 0.6 oz pur e alcohol) Social/Occasional Sexually Active Control Partners Comments Not Currently Comments No Sex and Gender Information Value Date Recorded Sex Assigned at Not on file Legal Sex Female 9:23 PM CDT Gender Identity Not on file Sexual Orientation Not on file Occupation Industry Job Start Date Job End Date retired Not on file Not on file Not on file Last Filed Vital Signs Vital Sign Reading Time Taken Comments Blood Pressure 118/76 11/10/2019 9:42 AM CDT Pulse 86 11/10/2019 9:42 AM CDT Temperature 36.4 C (97.5 F) 11/10/2019 9:42 AM CDT Respiratory Rate 20 11/10/2019 9:42 AM CDT Oxygen Saturation 98% 11/10/2019 9:42 AM CDT Inhaled Oxygen Concentration - - Weight 74.4 kg (164 lb) 11/10/2019 9:42 AM CDT Height 167.6 cm (5' 6 ) 11/10/2019 9:42 AM CDT Body Mass Index 26.47 11/10/2019 9:42 AM CDT Plan of Treatment Health Maintenance Due Date Last Done Comments DEXA Bone Density 1940 Hepatitis C Virus (HCV) Screening 1940 Pneumococcal Immunization (50+ years) (2 of 2 - PPSV23) 10/26/2015 10/25/2014 Respiratory Syncytial Virus (RSV) Immunization (Adult) (1 - 1-dose 75+ series) 2016 Zoster Immunization (3 of 3) 04/11/2018 02/14/2018, 10/17/2017, 10/28/2007 Influenza Immunization (#1) 10/14/202310/13, 10/28/2018, 10/16/2017, Additional history exists SARS-COV-2 Immunization ( season) 2023 11/08/2020, 04/01/2020, 03/11/2020 Pneumococcal Immunization Combined Discontinued 10/25/2014 DTaP/Tdap/Td Immunization Discontinued 10/23/2019 TdaP Immunization Completed 10/23/2019 Hepatitis B Immunization Aged Out No longer eligible based on patient's age to complete this topic Meningococcal Immunization (ACWY) Aged Out No longer eligible based on patient's age to complete this topic Rotavirus Immunization Aged Out No lo nger eligible based on patient's age to complete this topic Insurance [facility]IC[facility] Care Teams Vp Construction Relationship Specialty Start Date End Date Prieto Neal DO [address] [place] [address] PCP - General Internal Medicine 03/25/15
--- OUTSIDE RECORDS SUMMARY | 2024-04-22 09:52 | XMS_ITS ---
Author Name Auto Generated, Auto Generated Organization [employer] [employer] Support Name Relationship Address Phone Sarah Elton Emergency Contact [address] [place] [address] Unavailable Aimee Smith Financial Responsible Libertarian [address] [place] [address] Unavailable Aimee Smith Self [address] [place] [address] Unavailable Elton Smith [address] [place] [address] Unavailable Sarah Elton Spouse [address] [place] [address] Unavailable Michel Smith Emergency Contact [address] [place] [address] Unavailable Dmitriy mSith Emergency Contact [address] [place] [address] Unavailable Rosalba Hines Emergency Contact [address] [place] [address] Unavailable Alysha Gandara Emergency Contact [address] [place] [address] Unavailable Summary Purpose Consult/Referral Allergies, Adverse Reactions, Alerts No Known Allergies Medications No Known Medications Conditions/Problems Problem/Diagnosis Awareness of Diagnosis Code (ICD-10) Onset Date (Start Date) Resolution Date (End Date) Status Source Comments PAIN IN RIGHT ANKLE AND JOINTS OF RIGHT FOOT M25.571 04/09/19 25 Active [place] , Prieto OTHER CHRONIC PAIN G89.29 04/09/19 25 Active [place] , Prieto OTHER ABNORMALITIES OF GAIT AND MOBILITY R26.89 04/09/19 25 Active [place] , Prieto MULTIPLE FRACTURES OF RIBS, LEFT SIDE, INITIAL ENCOUNTER FOR CLOSED FRACTURE S22.42XA 03/26/19 21 Active [place] , Prieto WEAKNESS R53.1 03/26/19 21 Active [place] , Prieto SPONDYLOSIS WITHOUT MYELOPATHY OR RADICULOPATHY, LUMBAR REGION M47.816 02/28/19 17 Active [place] , Prieto LUMBAGO WITH SCIATICA, UNSPECIFIED SIDE M54.40 02/23/19 17 Active Prieto Neal Procedures No Known Procedures
--- OUTSIDE RECORDS SUMMARY | 2024-04-22 09:52 | XMS_ITS | Clinical Summary ---
Author Organization [facility] [place] [address] Address [address] [place] [address] Care Team Providers Care Sand Mill Grinder Name Role Phone Gabby Quevedo NP Primary Care Provider [phone] Allergies No known active allergies Medications aspirin [...] 03/03/2024 Assessment & Plan (03/03/2024 2:45 PM DRESS FITTER): She has not had this long but it seems to be changing. Concern for possible basal cell carcinoma. I referred her to Dermatology and encouraged her to reach out to them and make the appointment. Chronic pain of right ankle 03/03/2024 Assessment & Plan (03/03/2024 2:45 PM DRESS FITTER): Patient pointed to her right ankle when she was discussing her leg pain. So I did order an x-ray of her ankle just rule out osteoarthritis of that ankle. Primary insomnia 01/29/2024 Assessment & Plan (01/29/2024 1:45 PM DRESS FITTER): Stop zz-quill/ melatonin, which she was taking [...] 10/31/2023 Assessment & Plan (01/29/2024 2:29 PM DRESS FITTER): Was on gemfibrozil 600 mg b.I.d.. Having right leg cramping at night. I am going to have her discontinue the gemfibrozil at bedtime. Continue once daily. I would like to see if that helps with the leg pain at night. Assessment & Plan (10/31/2023 7:47 AM CDT): Lipid panel in epic from June 02, 2023. Labs are stable. [...] 10/31/2023 Assessment & Plan (01/29/2024 1:44 PM DRESS FITTER): -Recommended: Healthy diet. Avoiding junk food/fast food. [...] 02/22/19 Assessment & Plan (03/03/2024 2:44 PM DRESS FITTER): Patient sees the chiropractor. Leg pain could [...] side, initial encounter for closed fracture 03/25/2020 Encounters Date Type Department Care Team Description 04/07/2024 3:06 PM DRESS FITTER - 04/07/2024 11:59 PM DRESS FITTER Hospital Encounter [facility] [address] [place] [address] Chronic pain of right ankle Discharge Disposition: Discharge to home or self care 04/07/2024 1:09 PM DRESS FITTER - 04/07/2024 11:59 PM DRESS FITTER Hospital Encounter [facility] [address] [place] [address] [facility] [address] [place] [address] Dave Nguyen MD Spondylosis without myelopathy or radiculopathy, lumbar region (Primary Dx); Chronic pain of right ankle; Chronic right-sided low back pain with right-sided sciatica Discharge Disposition: Discharge to home or self care 03/06/2024 Orders Only [facility] Primary Care at [address] [address] Gabby Quevedo NP 03/05/2024 Telephone [facility] Primary Care at [address] [address] Gabby Quevedo NP Test Results (X-rays) 03/04/2024 Telephone [facility] Primary Care at [address] [address] Gabby Quevedo NP Medical Question/Miscellaneo us 03/03/2024 3:15 PM DRESS FITTER Ancillary Procedure [facility] Imaging at [address] [address] Chronic right-sided low back pain with right-sided sciatica 03/03/2024 2:00 PM DRESS FITTER Office Visit [facility] Primary Care at [address] [address] Gabby Quevedo, JAQUELIN Chronic pain of right ankle (Primary Dx); Right leg pain; Skin lesion of left lower limb; Chronic right-sided low back pain with right-sided sciatica 02/04/2024 Telephone [facility] Primary Care at [address] [address] Gabby Quevedo NP 01/29/2024 1:00 PM DRESS FITTER Office Visit [facility] Primary Care at [address] [address] Gabby Quevedo NP Annual physical exam (Primary Dx); Primary insomnia; Hypertriglyceridemia from Last 3 Months Immunizations Immunization Administration Dates Next Due Hep [...] 10/23/2019 ZOSTER LIVE 10/17/2017,10/28/2007 ZOSTER Recombinant 02/14/2018 Surgical History Surgery Date Site/Laterality Comments TONSILLECTOMY APPENDECTOMY TUBAL LIGATION GALLBLADDER SURGERY BUNIONECTOMY CATARACT EXTRACTION EYE SURGERY CHOLECYSTECTOMY 2004 Medical History Medical History Date Comments Transient global amnesia Broken arm and ribs LEFT Varicella GERD (gastroesophageal reflux disease) 05/04 Cataract 2013 Hypertension Mixed conductive and sensorineural hearing loss 2022 Speech impairment Family History Medical History Relation Name Comments Hypertension Brother Fazal Jessica Hyperlipidemia Father Hypertension Father Parkinsonism Father Stroke Father No Known Problems Maternal Grandfather No Known Problems Maternal Grandmother Esophageal cancer Mother DEVYN disease Mother Stroke Mother Heart attack Paternal Grandfather Tang Achterhoff Heart attack Paternal Grandmother Breast cancer Sister 1 Mayda Mabel Diabetes Sister 1 Mayda Mabel DEVYN disease Sister 1 Mayda Mabel Hyperlipidemia Sister 1 Mayda Mabel Hypertension Sister 1 Mayda Mabel Diabetes Sister 2 Brandimyles [place] Heart disease Sister 2 Brandimyles [place] Hypertension Sister 2 Brandi Boykin Relation Name Status Comments Brother Fazal Jessica Alive Father Maternal Grandfather Maternal Grandmother Mother Paternal Grandfather Tang Jessica Paternal Grandmother Sister 1 Mayda [place] Alive Sister 2 Brandi Boy[place] Social History Tobacco Use Types Packs/Day Years [...] on file Legal Sex Female 5:31 AM DRESS FITTER Gender Identity Female 06/12/2023 11:29 AM CDT Sexual Orientation Not on file Obstetrics History Last Filed Vital Signs Vital Sign Reading Time Taken Comments Blood Pressure 149/71 04/07/2024 1:43 PM DRESS FITTER Pulse 81 04/07/2024 1:43 PM DRESS FITTER Temperature 36.4 C (97.5 F) 04/07/2024 1:43 PM DRESS FITTER Respiratory Rate 16 04/07/2024 1:43 PM DRESS FITTER Oxygen Saturation 96% 04/07/2024 1:43 PM DRESS FITTER Inhaled Oxygen Concentration - - Weight 68.9 kg (152 lb) 04/07/2024 1:43 PM DRESS FITTER Height 162.6 cm (5' 4 ) 04/07/2024 1:43 PM DRESS FITTER Body Mass Index 26.09 04/07/2024 1:43 PM DRESS FITTER Plan of Treatment Health Maintenance Due Date Last Done Comments Hepatitis B Screening 10/01/1958 Zoster Vaccine (3 of 3) 04/11/2018 02/14/19 19, 10/17/2017, 10/28/2007 Covid-19 Vaccine (2023-2 5 season) 2023 08/07/2022, 10/25/2021, 07/20/2021, Additional history exists Depression Screening 10/28/2024 10/29/2023, 05/28/2023, 05/28/2023 Fall Risk Assessment 10/28/2024 10/29/2023 Well Visit 65+ 01/28/2025 01/29/2024 Osteoporosis Screening-Bone Density Scan 11/05/2025 11/06/2023 DTaP/Tdap/Td Vaccine (2 - Td or Tdap) 10/22/2029 10/23/2019 Pneumococcal vaccine 65+ Completed 05/28/2023, 10/13 Influenza Vaccine Completed 11/28/2023, , 10/25/2021, Additional history exists Procedures Procedure Name Priority Date/Time Associated Diagnosis Comments XR ANKLE RIGHT 3 OR MORE VIEWS Schedule Routine, Read Routine (OP Routine) 04/07/2024 3:19 PM DRESS FITTER Chronic pain of right ankle XR TIBIA FIBULA RIGHT2 VIEWS Schedule Routine, Read Routine (OP Routine) 04/07/2024 3:19 PM DRESS FITTER Chronic pain of right ankle XR SPINE LUMBAR 2 OR 3 VIEWS Schedule Routine, Read Routine (OP Routine) 03/03/2024 2:55 PM DRESS FITTER Chronic right-sided low back pain with right-sided sciatica DEXA AXIAL SKELETON BONE DENSITY 1 OR MORE SITES Schedule Routine, Read Routine (OP Routine) 11/06/2023 Post-menopausal from Last 3 Months or Most Recently Relevant to Health Maintenance Results * X-ray ankle right 3+ views (04/07/2024 3:19 PM DRESS FITTER) Anatomical Region Laterality Modality Lower Extremities, Ankle Right Compute d Radiography 04/07/2024 4:50 PM DRESS FITTER Impressions 04/07/2024 4:50 PM DRESS FITTER 1. No acute osseous abnormality in the right tibia or fibula. 2. Mild tibiotalar osteoarthritis. Electronically signed by: Michael Apodaca D.O. Narrative 04/07/2024 4:50 PM DRESS FITTER EXAMINATION: XR TIBIA FIBULA RIGHT2 VIEWS, XR [...] Fibula Right 2 Views (04/07/2024 3:19 PM DRESS FITTER) Anatomical Region Laterality Modality Lower Extremities, Lower Leg Right Com puted Radiography 04/07/2024 4:50 PM DRESS FITTER Impressions 04/07/2024 4:50 PM DRESS FITTER 1. No acute osseous abnormality in the right tibia or fibula. 2. Mild tibiotalar osteoarthritis. Electronically signed by: Michael Apodaca D.O. Narrative 04/07/2024 4:50 PM DRESS FITTER EXAMINATION: XR TIBIA FIBULA RIGHT2 VIEWS, XR ANKLE RIGHT 3 OR MORE VIEWS HISTORY: Right ankle pain COMPARISON: None FINDINGS: Right tibia/fibula: No acute fracture or dislocation. Chondrocalcinosis in the visualized knee joint. Vessel calcifications. Right ankle: No acute fracture or dislocation. The ankle mortise and talar dome are intact. Mild tibiotalar osteoarthritis. Large plantar calcaneal spur. Procedure Note Michael Apodaca DO - 04/07/2024 EXAMINATION: XR TIBIA FIBULA [...] 2 or 3 Views (03/03/2024 2:55 PM DRESS FITTER) Anatomical Region Laterality Modality Spine N/A Digital Radiogra phy 03/04/2024 9:19 AM DRESS FITTER Narrative 03/04/2024 9:21 AM DRESS FITTER EXAM DESCRIPTION: XR SPINE LUMBAR 2 OR 3 VIEWS REASON FOR STUDY: sciatica - right LE pain Pt complains of RLE pain x couple of months. No known injury or prior surgery. FINDINGS: There is mild levocurvature of the lumbar spine. No acute fracture. Mild retrolisthesis of L3 on L4. There is qyng-oo-atuuvqer L1-L4 and severe L4-S1 degenerative disc disease. Inferior lumbar facet osteoarthritis is present. Arterial atherosclerosis and right upper quadrant surgical clips are noted. IMPRESSION: Sxyt-xp-ttuaglft L1-L4 and severe L4-S1 degenerative disc disease with inferior lumbar facet osteoarthritis. THIS IS AN ELECTRONICALLY VERIFIED FINAL REPORT 03/04/2024 9:21 AM - Electronically signed by Elton Childers M.D. T: Report ID: [id number] Reading Location: [id number] Procedure Note Elton Childers MD - 03/04/2024 EXAM DESCRIPTION: XR SPINE LUMBAR 2 OR 3 VIEWS REASON FOR STUDY: sciatica - right LE pain Pt complains of RLE pain x couple of months. No known injury or priorsurgery. FINDINGS: There is mild levocurvature of the lumbar spine. No acutefracture. Mild retrolisthesis of L3 on L4. There is baak-zq-flybxqbp L1-L4 andsevere L4-S1 degenerative disc disease. Inferior lumbar facet osteoarthritis is present. Arterial atherosclerosis and right upper quadrant surgical clipsare noted. IMPRESSION: Xubx-tr-ruboemcq L1-L4 and severe L4-S1 degenerative disc disease with inferior lumbar facet osteoarthritis. THIS IS AN ELECTRONICALLY VERIFIED FINAL REPORT 03/04/2024 9:21 AM - Electronically signed by Elton Childers M.D. T: Report ID: [id number] Reading Location: [id number] Gabby Quevedo DIRECTOR OF INSTRUMENTAL MUSIC IMG XR PROCEDURES Final Resul t * Dexa Axial Skeleton Bone Density 1 or 2 Site (11/06/2023) Anatomical Region Laterality Modality Body N/A Radiographic Laura ging Gabby Quevedo DIRECTOR OF INSTRUMENTAL MUSIC IMG DXA PROCEDURES Final Resu lt from Last 3 Months or Most Recently Relevant to Health Maintenance Insurance [employer] HMO REF MEDICARE Prepmatic MEDICARE Prepmatic Care Teams Sand Mill Grinder Relationship Specialty Start Date End Date Gabby Quevedo NP PCP - General Family Medicine 10/29/23
--- OUTSIDE RECORDS SUMMARY | 2024-04-22 09:52 | XMS_ITS | Clinical Summary ---
Author Organization [facility] Address [address] [place] [address] Care Team Providers Care Armored Car Driver Name Role Phone Jere Cline Nathalia GREGG Primary Care Provider [phone] Social History Tobacco Use Types Packs/Day Years Used Date Smoking Tobacco: Never Assessed Comments Unknown Sex and Gender Information Value Date Recorded Sex Assigned at Not on file Legal Sex Female 6:43 PM CDT Gender Identity Not on file Sexual Orientation Not on file Plan of Treatment Health Maintenance Due Date Last Done Comments Annual Medicare Wellness Visit 2006 Dexa Scan (General) 2006 Zoster Vaccines (3 of 3) 04/11/2018 019, 10/17/2017, 10/28/2007 COVID-19 Vaccine ( season) 2023 08/07/2022, 10/25/2021, 07/20/2021, Additional history exists Influenza Adult (#1) 2023 10/23/2019, 10/28/2018, 10/16/2017, Additional history exists DTaP, Tdap and Td Vaccines (2 - Td or Tdap) 10/22/2029 10/23/2019 RSV Immunization or 60+ Years Completed 01/17/2023 Pneumococcal Vaccine: 65+ Years Completed 05/28/2023, 10/25/2014 Meningococcal B Vaccine Aged Out No l onger eligible based on patient's age to complete this topic Meningococcal Vaccine Aged Out No hector marlon eligible based on patient's age to complete this topic RSV Immunizations Under 20 Months Aged Out No longer eligible based on patient's age to complete this topic Insurance [facility] Care Teams Armored Car Driver Relationship Specialty Start Date End Date Jere Cline DO [address] [place] [id number] PCP - General FAMILY PRACTICE 07/12/23
== END 2024-04-22 09:12 | disposition home or self-care (01) ==
LOC: ANHIMG 09:13
PROVIDERS: PCP Family Medicine; Visit Provider Family Medicine
DX: Z12.31 Encounter for screening mammogram for malignant neoplasm of breast (principal)
CPT/HCPCS: 77063; 77067